=== PATIENT | male | born 1955 | race Caucasian/White ===

== ENCOUNTER 2017-10-11 05:38 | Inpatient (IN) | payer OTHER ==
[2017-10-06 08:12] VITALS: BMI 23.0
[~2017-10-11] VITALS: Ht 175.3 cm; Wt 71.8 kg
[2017-10-11] VITALS (11 sets, daily range): BP systolic 115–145; BP diastolic 68–91; PULSE 76–98; TEMP 36.2–36.5; O2SAT 92–99; Ht 175.3 cm; Wt 71.8 kg
[2017-10-11] MEDS ORDERED: LACTATED RINGER'S 1000ML 1,000 ML IV SCH (06:00)
[2017-10-11] MEDS ORDERED: ROCURONIUM BROMIDE 10 MG/ML 5 ML VIAL IV ONE ×2 (06:25→09:02)
[2017-10-11] MEDS ORDERED: FENTANYL CITRATE INJ 50 MCG/1 ML 2 ML VIAL ONE ×3 (06:25→10:04)
[2017-10-11] MEDS ORDERED: LIDOCAINE HCL 2% 2 ML VIAL (20MG/ML) ONE (06:25)
[2017-10-11] MEDS ORDERED: MIDAZOLAM HCL 1 MG/ML 2ML VIAL ONE (06:25)
[2017-10-11] MEDS ORDERED: DEXAMETHASONE SOD INJ 4 MG/ML VIAL ONE (06:25)
[2017-10-11] MEDS ORDERED: ONDANSETRON INJ 2 MG/ML 2 ML VIAL ONE (06:25)
[2017-10-11] MEDS ORDERED: PROPOFOL IV EMULSION 10 MG/ML 20 ML VIAL IV ONE (06:25)
--- NOTE | 2017-10-11 06:56 | History & Physical Bridge Note ---
H&P Re-Evaluation Bridge Note: I have examined the patient, reviewed the History & Physical and in the interval since the performance of the History & Physical I have noted the following changes of clinical significance: No changes noted
[2017-10-11] MEDS ORDERED: BUPIVACAINE LIPOSOME 1/3% 266 MG/20 ML VIAL INFIL ONE (07:02)
[2017-10-11] MEDS ORDERED: SODIUM CHLORIDE 0.9% PF 50 ML VIAL ONE (07:02)
[2017-10-11] MEDS ORDERED: CEFAZOLIN SOD 1 GM VIAL ONE (07:27)
[2017-10-11] MEDS ORDERED: ALBUMIN HUMAN 5% 12.5 GM/250 ML VIAL IV ONE (07:43)
[2017-10-11] MEDS ORDERED: PHENYLEPHRINE 100MCG/ML 5ML SYR ONE (08:17)
[2017-10-11] MEDS ORDERED: SURGICEL ABSORB HEMOSTAT 2IN X 14IN TOP ONE (08:57)
[2017-10-11] MEDS ORDERED: FENTANYL CITRATE INJ 50 MCG/1 ML 2 ML VIAL IV PRN (09:15)
[2017-10-11] MEDS ORDERED: HYDROmorphone INJ 1 MG/ML SYR IV PRN (09:15)
[2017-10-11] MEDS ORDERED: EpHEDrine SULFATE INJ 50 MG/ML AMP IV PRN (09:15)
[2017-10-11] MEDS ORDERED: ATROPINE SULFATE 0.1 MG/ML 5ML SYR IV PRN (09:15)
[2017-10-11] MEDS ORDERED: ONDANSETRON INJ 2 MG/ML 2 ML VIAL IV PRN ×2 (09:15→09:45)
[2017-10-11] MEDS ORDERED: NEOSTIGMINE METHYLSULFATE 5 MG/5 ML SYR ONE (09:16)
[2017-10-11] MEDS ORDERED: GLYCOPYRROLATE INJ 0.2 MG/ML VIAL ONE (09:16)
--- NOTE | 2017-10-11 09:32 | [facility] Post Operative Brief Note ---
Immediate Operative Summary Operative Date Oct 11, 2017. Pre-Operative Diagnosis Right upper lobe nodule Post-Operative Diagnosis Probable metastatic colon adenocarcinoma Procedure(s) Performed Robotic Assisted Thoracoscopy with Right Upper Lobe Wedge Resection, Right Upper Lobectomy with Mediastinal Lymphadenectomy Surgeon Dr Brooks Generating Plant Superintendent Surgeon(s) Jaime Espinosa PA-C Estimated Blood Loss 10ml Findings Apparent metastatic colon carcinoma. Specimens Frozen section #1 Right upper lobe wedge need diagnosis and margins taken to lab at [address] Anthony pathologist notified Dr Brooks of results A. Level 7 lymph node x2 B. R4 lymph node C. R2 lymph node D. R10 lymph node Complication(s) None Disposition Recovery Room / PACU
[2017-10-11] MEDS ORDERED: CEFAZOLIN IV 2,000 MG in DEXTROSE 5% 50ML 100 ML IV SCH (09:45)
[2017-10-11] MEDS ORDERED: MoRPHine SULFATE 2 MG/ML CARP IV PRN (09:45)
[2017-10-11] MEDS ORDERED: HYDROmorphone INJ 1 MG/ML SYR ONE (10:04)
--- NOTE | 2017-10-11 10:04 | OPERATIVE REPORT ---
DATE OF OPERATION: 10/11/2017 PREOPERATIVE DIAGNOSIS: Enlarging mass, right upper lobe. POSTOPERATIVE DIAGNOSIS: Adenocarcinoma, right upper lobe (apparent metastatic colon carcinoma). PROCEDURE: 1. Robot-assisted thoracoscopic wedge resection of right upper lobe mass. 2. Mediastinal lymph node dissection. SURGEON: Zeferino Brooks MD. ELECTRONIC LAB TECHNICIAN: ELLEN Perera, (Mr. Espinosa was present for the entire case and was at the bedside while I was at the console and closed the incisions at the conclusion of the case). DESCRIPTION OF PROCEDURE: Mr. Guallpa arrived at [facility] on the morning of 10/11/2017. After induction of general anesthesia and insertion of a dual-lumen endotracheal tube and proper monitoring lines, he was placed in left lateral decubitus position, his right chest prepped and draped in usual sterile fashion. After appropriate timeout had been called and prophylactic antibiotics given, an incision was made about the 8th interspace anteriorly. Carbon dioxide was insufflated through 5 mm port and then a 5 mm scope was placed. We see there were no adhesions and I placed total of 5 more ports. There was a 5 mm port placed posteriorly in the eighth interspace. An 8 mm port was placed 10 cm anterior to this port. A camera port which was 12 mm was placed about 10 cm more medial and then the 5 mm port was exchanged out for an 8 mm robotic port. A 12 mm port was then placed between the camera port and the more posterior port. Upon entering and insufflating CO2, we could see there were no adhesions. Upon evaluating the right upper lobe the indentation of the mass could be seen imbricating the pleura. This was grasped, an Endo-CLARA stapler was used to fire this several times to remove a generous wedge. This was delivered off the field with an Endobag. While waiting for the frozen section, I dissected out the level 7 lymph nodes. I then went more anteriorly and dissected out a level 10 node almost in its entirety. I then dissected the level 2 and level 4 node above the azygos vein. We had very little bleeding with this. After completing this dissection, the frozen section did come back. This was a necrotic tumor but also was an adenocarcinoma and it was difficult to tell without immunohistochemical markers but this appeared to be metastatic colon CA. We elected to stop here as he had fairly poor lung function. I did mix 266 mg of Exparel and performed an intrathoracic intercostal nerve block from the second to 11th rib using the Exparel mixed with a total of 60 mL of solution. This was injected with about 5 mL into each interspace. A 24-Mozambican chest tube was placed in the anterior most thoracostomy port site and directed towards the apex, sutured in place with heavy silk suture. Then 0 Vicryl was used to close the muscle layers of the 8 mm ports and the 12 mm port. Then 4-0 Monocryl was used in running subcuticular fashion to approximate the wound edges. He tolerated it well and only had very little in the way of an air leak at the conclusion of the case. I attest to the content of the Intraoperative Record and any orders documented therein. Any exception s are noted below.
[2017-10-11] MEDS ORDERED: ALBUTEROL HFA INHALER 8.5 GM INH ONE (10:07)
--- NOTE | 2017-10-11 10:22 | DIAGNOSTIC IMAGING REPORT ---
CHEST ONE VIEW PORTABLE CLINICAL HISTORY: right wedge resection COMPARISON STUDY: 08/02/2017 FINDINGS: Postsurgical changes are present on the right. There is a right-sided chest tube. There is subcutaneous emphysema on the right. There is no pneumothorax.[ There is no focal pulmonary consolidation. IMPRESSION: Postsurgical changes status post right-sided wedge resection with subcutaneous emphysema and right-sided chest tube. No evidence of pneumothorax Electronically signed by: Sarbjit Wu M.D. 10/11/2017 10:21 AM Dictated Date/Time: 10/11/2017 10:20 AM
--- NOTE | 2017-10-11 10:27 | Anesthesiology Progress Note ---
Anesthesia Post Op Note Date & Time Oct 11, 2017 at 10:26 Vital Signs Pain Intensity: 7 Vital Signs Past 12 Hours Date Time Temp Pulse Resp B/P (MAP) Pulse Ox O2 Delivery O2 Flow Rate FiO2 10/11/17 10:02 91 20 99 Mask 10.0 10/11/17 09:58 36.0 95 18 136/77 98 Oxymask 12 10/11/17 06:59 77 16 96 Room Air 10/11/17 06:02 36.5 88 20 126/91 98 Room Air Notes Mental Status: alert / awake / arousable, participated in evaluation Pt Amnestic to Procedure: Yes Nausea / Vomiting: adequately controlled Pain: adequately controlled Airway Patency, RR, SpO2: stable & adequate BP & HR: stable & adequate Hydration State: stable & adequate Anesthetic Complications: no major complications apparent
[2017-10-11] MEDS ORDERED: MoRPHine SULFATE 2 MG/ML CARP ONE (12:18)
[2017-10-11] MEDS: D5W AND 1/2NSS 1,000 ML IV SCH ×2 (12:19→21:35)
[2017-10-11] MEDS: OXYCODONE HCL IR 5 MG TAB (IMMEDIATE RELEASE) PO PRN ×2 (13:08→19:29)
[2017-10-11] MEDS: METOCLOPRAMIDE HCL INJ 5 MG/ML 2 ML VIAL IV. SCH ×2 (13:36→21:34)
[2017-10-11] MEDS: KETOROLAC TROMETHAMINE 15 MG/ML VIAL IV. SCH ×2 (13:37→21:34)
[2017-10-11] MEDS: ACETAMINOPHEN IV 1,000 MG in EMPTY BAG 0 ML IV SCH ×2 (13:37→21:34)
[2017-10-11] MEDS: CEFAZOLIN IV 2,000 MG in SYRINGE 0 ML IV SCH (19:06)
[2017-10-11] MEDS: DOCUSATE SODIUM 100 MG CAP PO SCH (19:30)
[2017-10-12] MEDS: CEFAZOLIN IV 2,000 MG in SYRINGE 0 ML IV SCH (00:38)
[2017-10-12 01:09] VITALS: BP 128/78; PULSE 69; TEMP 36.5; O2SAT 97
[2017-10-12] MEDS: ALBUTEROL HFA 8 GM INHALER INH PRN ×2 (02:35→10:44)
[2017-10-12 03:00] VITALS: BP 135/86; PULSE 66; TEMP 36.5; O2SAT 97
[2017-10-12] MEDS ORDERED: VNTHFA/IN INH (04:44)
[2017-10-12] MEDS ORDERED: COUGH DROP (SUGAR FREE) LOZ 24 LOZ/1 BOX ONE (05:33)
[2017-10-12] MEDS: ACETAMINOPHEN IV 1,000 MG in EMPTY BAG 0 ML IV SCH (05:35)
[2017-10-12] MEDS: KETOROLAC TROMETHAMINE 15 MG/ML VIAL IV. SCH ×2 (05:35→13:36)
[2017-10-12] MEDS: METOCLOPRAMIDE HCL INJ 5 MG/ML 2 ML VIAL IV. SCH (05:35)
[2017-10-12] MEDS ORDERED: COUGH DROP (SUGAR FREE) LOZ 24 LOZ/1 BOX PO PRN (06:00)
[2017-10-12 07:00] VITALS: BP 151/80; PULSE 68; TEMP 36.4; O2SAT 97
--- NOTE | 2017-10-12 07:13 | DIAGNOSTIC IMAGING REPORT ---
CHEST ONE VIEW PORTABLE CLINICAL HISTORY: right wedge resection postoperative evaluation COMPARISON STUDY: 10/11/2017 FINDINGS: Similar examination. Right-sided chest tube has been pulled back somewhat. Subcutaneous emphysema persists and is perhaps slightly diminished. No significant postprocedural pneumothorax. Left lung remains clear. IMPRESSION: Stable to slightly improved postoperative changes . No significant right-sided pneumothorax with a slight improvement of the subcutaneous emphysematous change. The above report was generated using voice recognition software. It may contain grammatical, syntax or spelling errors. Electronically signed by: Sebas Riley M.D. 10/12/2017 7:12 AM Dictated Date/Time: 10/12/2017 7:11 AM
[2017-10-12] MEDS: D5W AND 1/2NSS 1,000 ML IV SCH (07:47)
[2017-10-12] MEDS ORDERED: ULT/50 PO (08:09)
[2017-10-12] MEDS ORDERED: CLC100 PO (08:09)
--- NOTE | 2017-10-12 08:11 | Discharge Instructions ---
Discharge Instructions Date of Service Oct 12, 2017. Admission Reason for Admission: Right Lung Nodule Discharge Discharge Diagnosis / Problem: Right Lung Nodule Discharge Goals Goal(s): Learn about illness Activity Recommendations Activity Limitations: as noted below Lifting Limitations: none 1. You may remove dressings in 3 days and shower thereafter. No tub baths. 2. Do not drive until cleared to do so by Dr. Brooks. Do not drive if taking ultram. . Instructions / Follow-Up Instructions / Follow-Up 1. Office appointment with Dr. Brooks in 1 week. Office will call with date and time of appointment. Go to hospital 1 hour before appointment to get a chest x-ray. Current Hospital Diet Patient's current hospital diet: Regular Diet Discharge Diet Recommended Diet: Regular Diet Procedures Procedures Performed: Robotic Assisted Thoracoscopy with Right Upper Lobe Wedge Resection with Mediastinal Lymphadenectomy Pending Studies Studies pending at discharge: no Medical Emergencies . Who to Call and When: Medical Emergencies: If at any time you feel your situation is an emergency, please call 911 immediately. . Non-Emergent Contact Non-Emergency issues call your: Surgeon Call Non-Emergent contact if: you have a fever, your pain is not controlled, wound has increased drainage . "Provider Documentation" section prepared by Bharathi Espinosa. . VTE Core Measure Inpt VTE Proph given/why not?: Enoxaparin (Lovenox)SQ
--- NOTE | 2017-10-12 08:27 | DIAGNOSTIC IMAGING REPORT ---
CHEST ONE VIEW PORTABLE HISTORY: 62 years-old Male tube removal status post chest tube removal COMPARISON: Chest radiograph 10/12/2017, CTA of the chest 08/02/2017, PET CT 09/13/2017 TECHNIQUE: Portable AP view of the chest. FINDINGS: Cardiac silhouette is within normal limits. Prominence of the right mediastinal margin is again seen compatible with ectasia of the ascending thoracic aorta. Postoperative changes of the right midlung are noted without pneumothorax, pleural effusion, focal airspace consolidation or overt pulmonary edema. Emphysema. Status post removal of right-sided chest tube with mild persistent right chest wall subcutaneous emphysema. The bones of the chest appear grossly intact. IMPRESSION: 1. Status post right-sided chest tube removal without evidence of pneumothorax. Mild subcutaneous emphysema of the right chest wall redemonstrated. 2. Postoperative changes of the right lung. 3. Emphysema. The above report was generated using voice recognition software. It may contain grammatical, syntax or spelling errors. Electronically signed by: Jasbir Otrega M.D. 10/12/2017 8:26 AM Dictated Date/Time: 10/12/2017 8:22 AM
--- NOTE | 2017-10-12 08:31 | SURGERY PROGRESS NOTE ---
DATE: 10/12/2017 DATE: 10/12/2017 Mr. Guallpa is one day status post a robotic-assisted thoracoscopic wedge resection of an adenocarcinoma of the right upper lobe. It appears this may well be a metastatic disease. We had clean margins. He has no air leak. He has drained very little from his chest tube. His x-ray looks quite good. He looks good except he is on some oxygen. We are going to stop his IV fluids and remove his chest tube and have him ambulate in the hallway in an attempt to get him off the oxygen. If he looks better I will discharge him later today.
[2017-10-12] MEDS: DOCUSATE SODIUM 100 MG CAP PO SCH (08:33)
[2017-10-12] MEDS ORDERED: ENOXAPARIN 40 MG/0.4 ML SYR SQ SCH (09:00)
[2017-10-12 10:43] VITALS: BP 154/81; PULSE 76; TEMP 36.6; O2SAT 94
--- NOTE | 2017-10-12 10:52 | Anesthesiology Progress Note ---
Anesthesia Post Op Note Date & Time Oct 12, 2017 at 10:51 Vital Signs Vital Signs Past 12 Hours Date Time Temp Pulse Resp B/P (MAP) Pulse Ox O2 Delivery O2 Flow Rate FiO2 10/12/17 10:43 36.6 76 18 154/81 (105) 94 Room Air 10/12/17 07:25 Nasal Cannula 2.0 10/12/17 07:00 36.4 68 18 151/80 (103) 97 Nasal Cannula 2.0 10/12/17 03:00 36.5 66 16 135/86 (102) 97 Nasal Cannula 2.0 10/12/17 01:09 36.5 69 16 128/78 (95) 97 Nasal Cannula 2.0 10/11/17 23:00 36.5 76 16 118/72 (87) 97 Nasal Cannula 2.0 Notes Mental Status: alert / awake / arousable, participated in evaluation Pt Amnestic to Procedure: Yes Nausea / Vomiting: adequately controlled Pain: adequately controlled Airway Patency, RR, SpO2: stable & adequate BP & HR: stable & adequate Hydration State: stable & adequate Anesthetic Complications: no major complications apparent
[2017-10-12] MEDS ORDERED: ACETAMINOPHEN 325 MG TAB PO SCH (12:00)
[2017-10-12 13:53] VITALS: BP 154/81; PULSE 76; TEMP 36.6; O2SAT 94
== END 2017-10-12 14:10 | disposition home or self-care (01) | DRG 164 ==
LOC: C.ACU 05:38 → C.MSW 06:50 → ENRESERV 10:25
PROVIDERS: ADMIT Surgery; ATTEND Surgery
PROC: 07B74ZX Excision of Thorax Lymphatic, Percutaneous Endoscopic Approach, Diagnostic (ICD-10-PCS; principal; 2017-10-11 07:30)
PROC: 0BBC4ZZ Excision of Right Upper Lung Lobe, Percutaneous Endoscopic Approach (ICD-10-PCS; principal; 2017-10-11 07:30)
DX: C78.01 Secondary malignant neoplasm of right lung (principal); C18.9 Malignant neoplasm of colon, unspecified; Z87.891 Personal history of nicotine dependence

== ENCOUNTER 2017-10-12 17:38 | Inpatient (IN) | payer OTHER ==
[~2017-10-12] VITALS: Ht 175.3 cm; Wt 72.0 kg
[~2017-10-12 17:38] MED LIST: CLC100 PO; ULT/50 PO; VNTHFA/IN INH
--- NOTE | 2017-10-12 18:49 | DIAGNOSTIC IMAGING REPORT ---
TWO VIEW CHEST CLINICAL HISTORY: Dyspnea. FINDINGS: PA and lateral chest radiographs are compared to study performed earlier the same day 10/12/2017. Correlation is made with chest CT dated 08/02/2017. The PA view is degraded by patient rotation. The cardiomediastinal silhouette is unremarkable. There is atherosclerotic calcification of the thoracic aorta. Advanced emphysema and chronic interstitial thickening are similar to previous. No airspace consolidation or large pleural effusion is identified. There is a small right apical pneumothorax. No left-sided pneumothorax is identified. Suture material projects over the right suprahilar region. The skeletal structures appear osteopenic. The bony thorax appears intact. There is increasing subcutaneous emphysema along the right chest wall. IMPRESSION: 1. There is a small right apical pneumothorax. 2. There is increasing subcutaneous emphysema along the right chest wall. 3. Emphysema. No airspace consolidation or pleural effusion is identified. Electronically signed by: James Belle M.D. 10/12/2017 6:48 PM Dictated Date/Time: 10/12/2017 6:46 PM
[2017-10-12] MEDS ORDERED: ALBUTEROL HFA 8 GM INHALER INH PRN (19:30)
--- NOTE | 2017-10-12 19:57 | EMERGENCY ROOM VISIT NOTE ---
History Report prepared by Khloe: Marie Chamorro Under the Supervision of: Dr. Selwyn Jones D.O. First contact with patient: 17:49 Chief Complaint: OTHER COMPLAINT Stated Complaint: AIR LEAK IN NECK FROM THORACOTOMY History of Present Illness The patient is a 62 year old male who presents to the Emergency Room with complaints of a worsening air leak in his neck from a thoracotomy starting a few hours ago. The patient states that he had a wedge resection of his right upper lobe. He states that he was discharged from the hospital today. He states that as he started moving around at home, he noticed it started to puff up. The patient complains of developing a cough, a nasally voice, and his ears feeling plugged. He notes that he spoke to Dr. Brooks before coming in. He also notes that the nurse mentioned a small amount or air along where his chest tube was, but he feels like it is gone. Per past medical records, the patient had a thoracotomy wedge resection of an adenocarcinoma in the right upper lobe done by Dr. Brooks. Dr. Brooks reported no air leak. Source of History: patient, other (medical records) Onset: a few hours ago Position: neck Quality: other ("puffed up") Timing: worsening Associated Symptoms: + cough Note: The patient complains of a nasally voice and his ears feeling plugged. Review of Systems See HPI for pertinent positives & negatives. A total of 10 systems reviewed and were otherwise negative. Past Medical & Surgical Medical Problems: (1) Colon cancer (2) COPD (chronic obstructive pulmonary disease) (3) Hip dislocation, right (4) Lung metastasis (5) Pneumothorax on right Surgical Problems: (1) History of right hip replacement (2) History of thoracotomy (3) Status post partial colectomy Family History Patient reports no known family medical history. Social History Smoking Status: Former Smoker Alcohol Use: occasionally Drug Use: none Marital Status: Housing Status: lives with family Occupation Status: disabled Current/Historical Medications Scheduled Docusate Sodium (Docusate Sodium), 100 MG PO BID Scheduled PRN Albuterol Hfa (Ventolin Hfa), 2 PUFFS INH Q6H PRN for SOB/Wheezing Tramadol Hcl (Ultram), 50 MG PO Q4H PRN for Pain Allergies Coded Allergies: No Known Allergies (Verified , 10/06/17) Physical Exam Vital Signs Date Time Temp Pulse Resp B/P (MAP) Pulse Ox O2 Delivery O2 Flow Rate FiO2 10/12/17 19:27 92 18 154/99 94 Room Air 10/12/17 17:45 36.4 98 22 189/102 90 Physical Exam CONSTITUTIONAL/VITAL SIGNS: Reviewed / noted above. GENERAL: Non-toxic in appearance. INTEGUMENTARY: Warm, dry, and [place]. HEAD: Normocephalic. EYES: without scleral icterus or trauma. ENT/OROPHARYNX: clear and moist. LYMPHADENOPATHY/NECK: Is supple without lymphadenopathy or meningismus. Palpable subcutaneous air tracking up the right side of the neck. RESPIRATORY: Lungs clear and equal. CARDIOVASCULAR: Regular rate and rhythm. CHEST: Palpable subcutaneous air in the upper chest on the right. GI/ABDOMEN: Soft and nontender. No organomegaly or pulsatile mass. No rebound or guarding. Normal bowel sounds. EXTREMITIES: Warm and well perfused. BACK: No CVA tenderness. NEUROLOGICAL: Intact without focal deficits. PSYCHIATRIC: normal affect. MUSCULOSKELETAL: Normally developed with good muscle tone. Medical Decision & Procedures ER Provider Diagnostic Interpretation: Radiology results as stated below per my review and radiologist interpretation: TWO VIEW CHEST CLINICAL HISTORY: Dyspnea. FINDINGS: PA and lateral chest radiographs are compared to study performed earlier the same day 10/12/2017. Correlation is made with chest CT dated 08/02/2017. The PA view is degraded by patient rotation. The cardiomediastinal silhouette is unremarkable. There is atherosclerotic calcification of the thoracic aorta. Advanced emphysema and chronic interstitial thickening are similar to previous. No airspace consolidation or large pleural effusion is identified. There is a small right apical pneumothorax. No left-sided pneumothorax is identified. Suture material projects over the right suprahilar region. The skeletal structures appear osteopenic. The bony thorax appears intact. There is increasing subcutaneous emphysema along the right chest wall. IMPRESSION: 1. There is a small right apical pneumothorax. 2. There is increasing subcutaneous emphysema along the right chest wall. 3. Emphysema. No airspace consolidation or pleural effusion is identified. Electronically signed by: James Belle M.D. 10/12/2017 6:48 PM Dictated Date/Time: 10/12/2017 6:46 PM ED Course 1752: Previous medical records were reviewed. The patient was evaluated in room B3B. A complete history and physical examination was performed. 1921: Discussed the patient's case with Dr. Brooks. The patient will be evaluated for further treatment and disposition. Medical Decision the differential was considered includes acute myocardial infarction, acute coronary syndrome, myocarditis, pericarditis, pericardial effusions /tamponade, esophageal perforation, pulmonary embolism, pneumonia, pneumothorax, cardiomyopathy, congestive heart, anemia , COPD/asthma exacerbation. This is a 62-year-old male who presents to the ED with a chief complaint of subcutaneous air in his neck and right upper chest as well as some hoarseness in his voice. He also reports some muffled hearing on the right. The patient was discharged a few hours ago from the hospital after a robot-assisted wedge resection of the right upper lung for adenocarcinoma. The patient is breathing comfortably and in no distress. His exam reveals palpable crepitus/ subcutaneous air in the right upper chest and right neck area. Initial blood pressure is hypertensive. Chest x-ray reveals a small apical pneumothorax with increase subcutaneous emphysema. The patient was seen by the pulmonary surgeon , Dr. Brooks. He is going to admit the patient on oxygen.. Medication Reconcilliation Current Medication List: was personally reviewed by me Blood Pressure Screening Patient's blood pressure: Elevated blood pressure Blood pressure disposition: Referred to PCP Consults Time Called: 1910 Consulting Physician: Dr. Brooks - Thoracic Surgeon Returned Call: 1920 Discussed the patient's case with Dr. Brooks. The patient will be evaluated for further treatment and disposition. Impression Primary Impression: Pneumothorax Additional Impression: Status post thoracotomy Scribe Attestation The scribe's documentation has been prepared under my direction and personally reviewed by me in its entirety. I confirm that the note above accurately reflects all work, treatment, procedures, and medical decision making performed by me. Departure Information Dispostion Being Evaluated By Surgeon Referrals No Doctor, Assigned (PCP) Patient Instructions My [facility] Problem Qualifiers
--- NOTE | 2017-10-12 20:11 | HISTORY & PHYSICAL EXAMINATION ---
DATE OF ADMISSION: 10/12/2017 Mr. Guallpa was seen in the Emergency Room. He was just discharged several hours ago after we did a robot-assisted thoracoscopic wedge resection of a metastatic colon nodule in his right upper lobe. We did this yesterday. He did very well and did not have an air leak this morning. We removed his chest tube in the morning. His x-ray looked quite good. I saw him a few hours later and we discharged him. He went home and stated that after he got home, he got "loosened up" and began coughing quite a bit. He stated he was able to "open my lungs up." He noted subcutaneous emphysema in his right supraclavicular fossa in his neck. This concerned him of course and he called me, I told him to come back. He does have a small pneumothorax. Otherwise, I think his x-ray looks pretty good. At this point, I am not going to put a chest tube in but I am going to admit him and put him on oxygen. We will repeat a chest x-ray in the morning. My hope is this will simply resolve as he and his sister both state that his subcutaneous emphysema has actually gotten better than it was a few hours ago. We will see how he looks overnight.
[2017-10-12] MEDS: OXYCODONE/ACETAMINOPHEN 5-325 TAB PO PRN (20:50)
[2017-10-12] MEDS: DOCUSATE SODIUM 100 MG CAP PO SCH (21:00)
[2017-10-12 22:01] VITALS: BP 132/86; PULSE 88; TEMP 36.7; O2SAT 96; Ht 175.3 cm; Wt 72.0 kg
[2017-10-12 22:54] VITALS: BP 140/73; PULSE 89; TEMP 36.9; O2SAT 97
[2017-10-13] MEDS: OXYCODONE/ACETAMINOPHEN 5-325 TAB PO PRN ×5 (01:41→21:07)
[2017-10-13 06:52] VITALS: BP 141/85; PULSE 86; O2SAT 94
--- NOTE | 2017-10-13 07:39 | DIAGNOSTIC IMAGING REPORT ---
CHEST ONE VIEW PORTABLE CLINICAL HISTORY: pneumothorax COMPARISON STUDY: 10/12/2017 FINDINGS: The cardiac and mediastinal contours remain stable. There is evidence for underlying pulmonary emphysema. There is right-sided subcutaneous emphysema. There is a right apical pneumothorax the pleural separation of 12 mm. There is no focal pelvic consolidation[ IMPRESSION: 1. Persistent small right apical pneumothorax the pleural separation of 12 mm 2. Emphysema 3. Stable subcutaneous emphysema on the right Electronically signed by: Sarbjit Wu M.D. 10/13/2017 7:37 AM Dictated Date/Time: 10/13/2017 7:36 AM
--- NOTE | 2017-10-13 08:22 | SURGERY PROGRESS NOTE ---
DATE: 10/13/2017 Mr. Guallpa was admitted last night after being discharged yesterday, 1 day status post robot-assisted thoracoscopic wedge resection of metastases from his colon CA. He has a very tiny pneumothorax and I think his subcutaneous emphysema is better than last night. He is still a bit anxious about this. On the x-ray, I think subcutaneous emphysema is a bit better. I would not put a chest tube in him now. I think he can probably be discharged tomorrow. I am a bit afraid to send him home today and he is anxious about it. We will continue to ambulate him. He does sound a bit better to me. Dr. Anthony will be covering and I think he can probably be discharged tomorrow.
[2017-10-13] MEDS: DOCUSATE SODIUM 100 MG CAP PO SCH ×2 (09:44→21:06)
[2017-10-13] MEDS: ENOXAPARIN 40 MG/0.4 ML SYR SQ SCH (11:19)
[2017-10-13 14:54] VITALS: BP 139/76; PULSE 85; O2SAT 93
[2017-10-13] MEDS: KETOROLAC TROMETHAMINE 15 MG/ML VIAL IV PRN (19:49)
[2017-10-13 21:10] VITALS: O2SAT 97
[2017-10-13 23:07] VITALS: BP 138/81; PULSE 87; TEMP 36.7; O2SAT 95
--- NOTE | 2017-10-14 07:23 | DIAGNOSTIC IMAGING REPORT ---
SINGLE VIEW CHEST CLINICAL HISTORY: Dyspnea. FINDINGS: An AP, portable, upright chest radiograph is compared to study dated 10/13/2017. Correlation is made with chest CT dated 08/02/2017. The examination is degraded by portable technique and patient rotation. The cardiomediastinal silhouette is unremarkable. There is atherosclerotic calcification of the thoracic aorta. Advanced emphysema and chronic interstitial thickening are similar to previous. No airspace consolidation or large pleural effusion is identified. A trace right apical pneumothorax persists. No left-sided pneumothorax is identified. Suture material projects over the right suprahilar region. The skeletal structures appear osteopenic. The bony thorax appears intact. Subcutaneous emphysema is again seen along the right chest wall and in the right lower neck. IMPRESSION: 1. A trace right apical pneumothorax persists. 2. Subcutaneous emphysema. 3. Emphysema. No airspace consolidation or pleural effusion is identified. Electronically signed by: James Belle M.D. 10/14/2017 7:21 AM Dictated Date/Time: 10/14/2017 7:20 AM
[2017-10-14] MEDS ORDERED: MAGNESIUM CITRATE 296 ML/BTL PO PRN (07:30)
[2017-10-14 07:32] VITALS: BP 149/95; PULSE 89; TEMP 36.4; O2SAT 95
[2017-10-14] MEDS: OXYCODONE/ACETAMINOPHEN 5-325 TAB PO PRN ×2 (07:55→19:40)
--- NOTE | 2017-10-14 08:04 | SURGERY PROGRESS NOTE ---
DATE: 10/14/[address] Brooks. Derian sitting at the side of the bed in no acute distress. He states he feels about the same as yesterday. He has some discomfort in his neck area which is really much unchanged. Clinically, you can appreciate subcutaneous emphysema in the clavicular area in the right minimally in the chest wall. The dressings I took off since it were bothering the patient and all the incisions are healing fine. There is no drainage or open areas. His last vitals showed a temperature of 36.7, pulse 87, respirations 16, blood pressure 138/81, O2 sats 95 on room air. I repeated a chest x-ray today. The subcutaneous emphysema appears much less than yesterday. I do not see a side of pneumothorax on the right. The patient's main complaint is he has not moved his bowels and would like to stay here another day. I could not follow from if he has little discomfort yet; therefore, hopefully by tomorrow he will be able to be discharged.
[2017-10-14] MEDS: DOCUSATE SODIUM 100 MG CAP PO SCH ×2 (09:42→20:25)
[2017-10-14] MEDS: ENOXAPARIN 40 MG/0.4 ML SYR SQ SCH (09:43)
[2017-10-14] MEDS: KETOROLAC TROMETHAMINE 15 MG/ML VIAL IV PRN ×2 (13:40→22:30)
[2017-10-14 15:13] VITALS: BP 116/71; PULSE 80; TEMP 36.6; O2SAT 97
[2017-10-14 23:03] VITALS: BP 142/87; PULSE 80; TEMP 36.4; O2SAT 91
--- NOTE | 2017-10-15 07:20 | DIAGNOSTIC IMAGING REPORT ---
CHEST ONE VIEW PORTABLE HISTORY: 62 years-old Male follow up pneumo follow-up study in a patient with small right pneumothorax. COMPARISON: Chest radiograph 10/14/2016 TECHNIQUE: Portable AP view of the chest FINDINGS: The cardiomediastinal and hilar silhouettes are within normal limits. Mild tortuosity and ectasia of the ascending thoracic aorta with atherosclerosis. Postoperative changes of the right upper lung. Biapical pleural-parenchymal scarring. Subsegmental linear opacities of the lateral right lung base are unchanged suggesting atelectasis or scarring. Persistent mildly decreased subcutaneous emphysema along the right chest wall, notably within the supraclavicular tissues. Emphysematous changes redemonstrated. Previously noted trace right apical pneumothorax is not definitively seen on today's study. IMPRESSION: 1. Postoperative changes of the right upper lung. Previously noted trace right apical pneumothorax not identified on today's study. 2. Persistent mildly decreased subcutaneous emphysema along the right chest wall. The above report was generated using voice recognition software. It may contain grammatical, syntax or spelling errors. Electronically signed by: Jasbir Ortega M.D. 10/15/2017 7:19 AM Dictated Date/Time: 10/15/2017 7:15 AM
[2017-10-15 08:01] VITALS: BP 148/76; PULSE 95; TEMP 36.4; O2SAT 95
[2017-10-15] MEDS: OXYCODONE/ACETAMINOPHEN 5-325 TAB PO PRN (08:19)
[2017-10-15] MEDS: DOCUSATE SODIUM 100 MG CAP PO SCH (09:00)
--- NOTE | 2017-10-15 09:03 | Discharge Instructions ---
Discharge Instructions Date of Service Oct 15, 2017. Admission Reason for Admission: Pneumothorax On Right Discharge Discharge Diagnosis / Problem: right post op pneumothorax Discharge Goals Goal(s): Decrease discomfort, Improve function, Increase independence Activity Recommendations Activity Limitations: as noted below (no lifting greater than 10 lbs) Lifting Limitations: no more than 10 pounds Exercise/Sports Limitations: until after follow-up appointment May Resume Sexual Activity: after follow-up appointment Shower/Bathe: keep incision dry Driving or Machine Use: bradley brar in follow up . Instructions / Follow-Up Instructions / Follow-Up call [phone] for any problems keep previous set up nona for this week Current Hospital Diet Patient's current hospital diet: Regular Diet Discharge Diet Recommended Diet: Regular Diet Pending Studies Studies pending at discharge: no Medical Emergencies . Who to Call and When: Medical Emergencies: If at any time you feel your situation is an emergency, please call 911 immediately. . Non-Emergent Contact Non-Emergency issues call your: Primary Care Provider . "Provider Documentation" section prepared by Bertram Anthony. . VTE Core Measure Inpt VTE Proph given/why not?: SCD's
[2017-10-15] MEDS: ENOXAPARIN 40 MG/0.4 ML SYR SQ SCH (09:16)
[2017-10-15 09:24] VITALS: BP 148/76; PULSE 95; TEMP 36.4; O2SAT 95
--- NOTE | 2017-10-15 09:55 | SURGERY PROGRESS NOTE ---
DATE: 10/15/2017 SUBJECTIVE: Derian is doing much better this morning. He has less discomfort in his neck area. He is up and around, anxious to go home. His last vitals showed a temperature of 36.4, pulse 95, respirations 18, blood pressure 148/76, O2 sat is 95 on room air. Clinically, the subQ emphysema in the neck area has decreased as in the chest wall. Radiographically, there is no evidence of a pneumothorax this morning. The incisions in the chest wall are all healing well. He has moved his bowels with some magnesium citrate yesterday. At this point, we will discharge the patient and have him follow up with Dr. Brooks this coming week and he has some prescription for pain pills at home. [place]
--- NOTE | 2017-10-16 18:46 | DISCHARGE SUMMARY ---
DISCHARGE DIAGNOSES: Subcutaneous emphysema, postoperatively. HOSPITAL COURSE: Derian Guallpa is a 62-year-old male with history of colon cancer, has been treated postoperatively and had his colon resection several years ago who had a mass in his right upper lobe. On 10/11/2017, I took the patient to the operating room and did a robot-assisted wedge resection with a plan towards perhaps doing a lobectomy; however, this came back as an adenocarcinoma. We felt this was consistent with original primary, so after performing the metastasectomy, I inserted a chest tube and watched him on the floor. He had no air leak the next day. I removed his chest tube early in the morning and he was in the hospital for a few hours after that and then looked very good so he was discharged around lunchtime. I got a call from the patient several hours later that he started having "puffiness" along his right supraclavicular and neck area. He had also started coughing more at home as he felt that he needed to "clear my lungs." I think that this may have been a problem with the development of subcutaneous emphysema. I got an x-ray and the patient did indeed have a small pneumothorax and some subcutaneous emphysema. He was unnerved by this. I admitted him to the hospital. He had had no hypoxia. I did keep him on oxygen as he did have a small pneumothorax and the following morning, I really could not see the pneumothorax, but he still had emphysema. We watched him for another day and on 10/15/2016, he was discharged as his subcutaneous emphysema had improved, not only radiographically, but also clinically. He felt better. He sounded better, he is ambulating in the hallway and moving his bowels. His incisions were all clean. He was discharged home on 10/15/2016 and I will see him back in the office in a week to go over the final path and to check an x-ray.
== END 2017-10-15 10:28 | disposition home or self-care (01) | DRG 200 ==
LOC: C.EDB 17:39 → C.MSN 19:39 → ENRESERV 21:14
PROVIDERS: ADMIT Surgery; ATTEND Surgery
DX: J95.811 Postprocedural pneumothorax (principal); C78.01 Secondary malignant neoplasm of right lung; C18.9 Malignant neoplasm of colon, unspecified; Z87.891 Personal history of nicotine dependence; T81.82XA Emphysema (subcutaneous) resulting from a procedure, initial encounter; Y83.6 Removal of other organ (partial) (total) as the cause of abnormal reaction of the patient, or of later complication, without mention of misadventure at the time of the procedure

== ENCOUNTER → 2017-10-20 | Outpatient (CLI) | payer OTHER ==
--- NOTE | 2017-10-20 09:50 | DIAGNOSTIC IMAGING REPORT ---
CHEST 2 VIEWS ROUTINE CLINICAL HISTORY: Right lung nodule status post thoracoscopic wedge resection on October 11, 2017. COMPARISON STUDY: Chest radiograph October 15, 2017. FINDINGS: Postoperative findings within the right upper lobe are again noted. A few nodular opacities along the resection margin are noted. Findings are either unchanged or slightly increased since exam of October 15, 2017. There is trace subcutaneous gas within the right lower neck. This has decreased. There is no pneumothorax or pleural effusion. Mild lung hyperexpansion is noted. Cardiac size is normal. There is no evidence for pulmonary edema. IMPRESSION: 1. A few nodular opacities within the right upper lung which likely reflect postsurgical change. This can be assessed on subsequent exams to ensure resolution. 2. Near-complete resolution of soft tissue gas within the right lower neck since prior exam. No pneumothorax. Electronically signed by: Rodrigue Lemus M.D. 10/20/2017 9:48 AM Dictated Date/Time: 10/20/2017 9:44 AM
== END | disposition home or self-care (01) ==
LOC: C.RAD 09:07
PROVIDERS: ATTEND Surgery
DX: R91.1 Solitary pulmonary nodule (principal); R91.8 Other nonspecific abnormal finding of lung field

== ENCOUNTER → 2017-11-09 | Day surgery (SDC) | payer OTHER ==
[2017-11-01 09:17] VITALS: BMI 23.0
[~2017-11-09] VITALS: Ht 175.3 cm; Wt 71.4 kg
[~2017-11-09] MED LIST changes: -CLC100 PO; +IBUP-103 PO; +PROPOFOL IV EMULSION 10 MG/ML 20 ML VIAL IV ONE; +SODIUM CHLORIDE 0.9% 500ML 500 ML IV ONE; -ULT/50 PO
[2017-11-09 08:07] VITALS: Ht 175.3 cm; Wt 71.4 kg
--- NOTE | 2017-11-09 08:32 | Endo History and Physical ---
History & Physical Date of Service: Nov 09, 2017. Chief Complaint: HX COLON CANCER WITH RESECTION Referring Physician: DR. SNEED History of Present Illness 62 yo w hx of metastatic colon ca, s/p resection 2010. Presenting for colonoscopy Past Surgical History Hx Cardiac Surgery: No Hx Internal Defibrillator: No Hx Pacemaker: No Hx Abdominal Surgery: No Hx of Implantable Prosthesis: No Hx Post-Op Nausea and Vomiting: No Hx Cancer Surgery: Yes (COLON RESECTION, LLL BIOPSY WITH PNEUMO --> WEDGE RESECTION, RUL WEDGE RES) Hx Thoracic Surgery: No Hx Orthopedic: Yes (RT TREVOR) Hx Urinary Tract Surgery: Yes (STRANGULATED TESTICLE REPAIR) Family History None Social History Smoking Status: Former Smoker Hx Substance Use: No Hx Alcohol Use: No Allergies Coded Allergies: No Known Allergies (Verified , 11/01/17) Current Medications Reported Home Medications Medications Dose Route/Sig Max Daily Dose Days Date Category Advil (Ibuprofen) 200 Mg Tab 200-600 Mg PO Q4H PRN 11/01/17 Reported Ventolin Hfa (Albuterol) 200 Puffs/74935 Mcg Aers 2 Puffs INH Q6H PRN 08/02/17 Reported Vital Signs Weight (Kilograms): 71.36 Height (Feet): 5 Height (Inches): 9 Date Time Temp Pulse Resp B/P (MAP) Pulse Ox O2 Delivery O2 Flow Rate FiO2 11/09/17 08:20 36.5 88 20 139/89 (106) 96 Room Air Physical Exam General Appearance: WD/WN, no apparent distress Respiratory/Chest: Respiratory effort: no dyspnea Auscultation: breath sounds normal Cardiovascular: Apical Impulse: not displaced Heart Auscultation: RRR, normal S1, normal S2 Abdomen: Inspection & Palpation: soft, non-distended Assessment and Plan 62 yo presenting for colonoscopy for cancer surveillance
--- NOTE | 2017-11-09 09:10 | GI REPORT ---
Procedure Date: 11/09/2017 8:35 AM Procedure: Colonoscopy Indications: High risk colon cancer surveillance: Personal history of colon cancer Medicines: Monitored Anesthesia Care Complications: No immediate complications. Estimated blood loss: None. Estimated Blood Loss: Estimated blood loss: none. Procedure: Pre-Anesthesia Assessment: - Pre-Anesthesia Assessment: - Prior to the procedure, a History and Physical was performed, and patient medications, allergies and sensitivities were reviewed. The patient's tolerance of previous anesthesia was reviewed. Please see [facility] for complete details. - The risks and benefits of the procedure and the sedation options and risks were discussed with the patient. All questions were answered and informed consent was obtained. - Patient identification and proposed procedure were verified prior to the procedure by the physician and the nurse. The procedure was verified in the pre-procedure area in the procedure room. After obtaining informed consent, the endoscope was passed carefully and meticuously under direct vision and only advanced when the lumen was clearly identified, C02 insuflation was utilized throughout the entirity of the procedure. Throughout the procedure, the patient's blood pressure, pulse, and oxygen saturations were monitored continuously. After I obtained informed consent, the scope was passed under direct vision. Throughout the procedure, the patient's blood pressure, pulse, and oxygen saturations were monitored continuously. The scope was introduced through the anus and advanced to the cecum, identified by appendiceal orifice and ileocecal valve. The colonoscopy was performed without difficulty. The patient tolerated the procedure well. The quality of the bowel preparation was good. Findings: There was evidence of a prior end-to-side colo-colonic anastomosis in the sigmoid colon. This was patent and was characterized by healthy appearing mucosa. The terminal ileum appeared normal. Multiple small-mouthed diverticula were found in the sigmoid colon. Internal hemorrhoids were found during retroflexion. Internal hemorrhoids were found during retroflexion. The exam was otherwise without abnormality on direct and retroflexion views. Impression: - Patent end-to-side colo-colonic anastomosis, characterized by healthy appearing mucosa. - The examined portion of the ileum was normal. - Diverticulosis in the sigmoid colon. - Internal hemorrhoids. - Internal hemorrhoids. - The examination was otherwise normal on direct and retroflexion views. - No specimens collected. Recommendation: - Discharge patient to home (with escort). - Repeat colonoscopy in 3 years for surveillance. - Return to referring physician as previously scheduled. Jb Emery MD 11/09/2017 9:09:55 AM This report has been signed electronically. Note Initiated On: 11/09/2017 8:35 AM I attest to the content of the Intraoperative Record and orders documented therein, exceptions below
--- NOTE | 2017-11-09 09:13 | Discharge Instructions ---
Endoscopy Patient Instructions Date / Procedure(s) Performed Nov 09, 2017. Colonoscopy Allergy Information Coded Allergies: No Known Allergies (Verified , 11/01/17) Discharge Date / Findings Nov 09, 2017. Findings: There was evidence of a prior end-to-side colo-colonic anastomosis in the sigmoid colon. This was patent and was characterized by healthy appearing mucosa. The terminal ileum appeared normal. Multiple small-mouthed diverticula were found in the sigmoid colon. Internal hemorrhoids were found during retroflexion. Internal hemorrhoids were found during retroflexion. The exam was otherwise without abnormality on direct and retroflexion views. Impression: - Patent end-to-side colo-colonic anastomosis, characterized by healthy appearing mucosa. - The examined portion of the ileum was normal. - Diverticulosis in the sigmoid colon. - Internal hemorrhoids. - Internal hemorrhoids. - The examination was otherwise normal on direct and retroflexion views. - No specimens collected. Recommendation: - Discharge patient to home (with escort). - Repeat colonoscopy in 3 years for surveillance. - Return to referring physician as previously scheduled. Provider Instructions Activity Restrictions - No exercising or heavy lifting for 24 hours. - Do not drink alcohol the day of the procedure. - Do not drive a car or operate machinery until the day after the procedure. - Do not make any important decisions or sign important papers in 24 hours after the procedure. Following Day: - Return to full activity which may include returning to work/school. Diet Start your diet with liquids and light foods (jello, soup, juice, toast). Then eat your usual diet if not nauseated. Treatment For Common After Affects For mild abdominal pain, bloating, or excessive gas: - Rest - Eat lightly - Lie on right side Follow-Up Information Follow-up with DR. SNEED as scheduled Anesthesia Information What You Should Know You have had a procedure that required some medicine to reduce anxiety and discomfort. This treatment is called moderate sedation. After receiving the treatment, you may be sleepy, but you will be able to breathe on your own. The effects of the treatment may last for several hours. Follow these instructions along with Activity/Diet recommendations noted above: * Do NOT do anything where dizziness or clumsiness would be dangerous. * Rest quietly at home today, then you can be up and about tomorrow. * Have a responsible person stay with you the rest of today. * You may have had an I.V. today. If so, you may take the dressing off later today. Recommendations Call your doctor if: * Trouble breathing * Continuous vomiting for more than 24 hours * Temperature above 101 degrees * Severe abdominal pain or bloating * Pain not relieved by pain medicine ordered * There is increased drainage or redness from any incision * A large amount of rectal bleeding greater than 2-3 tablespoons. (If you had a polyp/s removed or have hemorrhoids, a small amount of blood - from the rectum is to be expected.) * You have any unanswered questions or concerns. IN THE EVENT OF A SERIOUS EMERGENCY, GO TO THE NEAREST EMERGENCY ROOM Your discharge instructions were prepared by provider Jb Emery. Patient Instructions Signature Page Derian Guallpa Patient (or Guardian) Signature/Date: I have read and understand the instructions given to me by my caregivers. Caregiver/RN/Doctor Signature/Date: The above-named patient and/or guardian has received patient instructions on this date. + Original Patient Signature Page (only) stays with chart. Please make copy for patient.
--- NOTE | 2017-11-09 09:16 | Anesthesiology Progress Note ---
Anesthesia Post Op Note Date & Time Nov 09, 2017 at 09:15 Vital Signs Pain Intensity: 0 Vital Signs Past 12 Hours Date Time Temp Pulse Resp B/P (MAP) Pulse Ox O2 Delivery O2 Flow Rate FiO2 11/09/17 09:14 85 20 115/73 (87) 97 Room Air 11/09/17 08:57 72 20 114/63 (80) 98 Room Air 11/09/17 08:20 36.5 88 20 139/89 (106) 96 Room Air Notes Mental Status: alert / awake / arousable, participated in evaluation Pt Amnestic to Procedure: Yes Nausea / Vomiting: adequately controlled Pain: adequately controlled Airway Patency, RR, SpO2: stable & adequate BP & HR: stable & adequate Hydration State: stable & adequate Anesthetic Complications: no major complications apparent
[2017-11-09 09:28] VITALS: BP 123/93; PULSE 77; O2SAT 97
== END | disposition home or self-care (01) ==
LOC: C.GI 07:32
PROVIDERS: ATTEND Internal Medicine
DX: Z12.11 Encounter for screening for malignant neoplasm of colon (principal); Z85.038 Personal history of other malignant neoplasm of large intestine; K57.30 Diverticulosis of large intestine without perforation or abscess without bleeding; K64.8 Other hemorrhoids; Z90.49 Acquired absence of other specified parts of digestive tract; Z87.891 Personal history of nicotine dependence

== ENCOUNTER 2019-09-11 03:14 | Inpatient (IN) ==
[2019-09-11] MEDS ORDERED: ACETAMINOPHEN 1,000 MG/100 ML VIAL IV STA (03:32)
--- NOTE | 2019-09-11 03:38 | Emergency Department Note ---
History of Present Illness General Chief complaint: Fever Stated complaint: FEVER-103.2 S/P TOOTH EXTRACTION Time Seen by Provider: 09/11/19 03:25 Source: patient Mode of arrival: ambulatory Limitations: no limitations History of Present Illness Provider complaint: fever Onset (ago): day(s) 1 Radiation: non-radiation Severity: moderate Pain Consistency: + intermittent Maximum Pain Intensity: 8 Quality: + aching Relieved By: + none Exacerbated By: + none Associated symptoms: + fever/chills, + loss of appetite and + malaise Treatments prior to arrival: NSAID This is a 64-year-old male with a history of COPD and colon cancer who presents the emergency department this evening complaining of fevers, malaise, body aches, and decreased appetite. Patient states on Monday he had a scheduled dental extraction which went well. Patient received local anesthesia only. Patient has not had any increased drainage, bleeding, or worsening pain from the site. Patient states he noted Monday afternoon and evening he began to have subjective fevers and chills. Today then patient had loss of appetite, fatigue, worsening fevers and chills, and states his temperature at its highest got up to 103.6 tonight at home. Due to concern for persistent fever, patient return the emergency room. Patient denies any recent sick contact. Patient denies any diarrhea, vomiting, headaches, chest pain, trouble breathing, change in his cough or sputum, abdominal pain, rash or sores. Patient states he is a former smoker. Patient states he did not get a flu shot this year. Home Medications Home Medications Medication Instructions Recorded Confirmed Type albuterol sulfate 2.5 mg INH Q6H PRN #90 ml 08/15/19 09/11/19 Rx albuterol sulfate [Ventolin HFA] 2 puff INHALATION Q6H PRN 08/15/19 09/11/19 History tiotropium bromide [Spiriva with 1 cap INHALATION DAILY 09/11/19 09/11/19 History HandiHaler] Allergies Allergy/AdvReac Type Severity Reaction Status Date / Time No Known Allergies Allergy Verified 09/11/19 03:25 Past Med/Surg History Medical History (Updated 09/11/19 @ 08:50 by Payal Kim DO) Colon cancer (Chronic) "resection (partial colectomy) 2010, lung mets diagnosed in 2011, received c hemo, [facility] 08/02/17 12 x 16 nodule right upper lung" COPD (chronic obstructive pulmonary disease) (Chronic) Hip dislocation, right (Resolved) Lung metastasis (Chronic) "primary = colon Ca, first diagnoses in 2011, [facility] 08/02/17 12 x 16 nodule right upper lung" Pneumothorax on right Surgical History History of right hip replacement History of thoracotomy Status post partial colectomy (Chronic) "for adenocarcinoma of colon ~ 2010" Status post pneumonectomy Family History Brother Parkinson disease Social History (Updated 09/11/19 @ 08:46 by Payal Kim DO) Preferred Language: Estonian Communication Ability: Effective Video Network Engineer Required: No Beliefs That Will Affect Care: None Current Living Situation: Alone Other Information That Helps Us Care for You: No Feels Safe at Home: Yes Smoking Status: Current every day smoker Tobacco Type: e-cigarettes ; Cigarettes Per Day: used to smoke cigarettes lifelong, now using e-cigarettes daily ; Do You Dip or Chew Tobacco: No ; Smoking End Date: 2011 ; Second Hand Exposure: No ; Tobacco Cessation Education Requested by Patient: No Hx Alcohol Use: No Hx Substance Use: No Review of Systems See HPI for pertinent positives & negatives. Physical Exam Vital Signs Vital Signs - 24 hr 09/11/19 03:17 09/11/19 03:49 09/11/19 03:52 Temperature 39.3 C H Temperature Source Oral Pulse Rate 146 H Pulse Rate [Bilateral Apical] 130 H Pulse Rhythm [Bilateral Apical] Pulse Strength [Bilateral Apical] Respiratory Rate 18 22 Respiratory Effort / Characteristics Respiratory Depth Normal Respiratory Pattern Blood Pressure 141/78 H Blood Pressure [Left Arm] 141/90 H Blood Pressure Mean 99 Blood Pressure Mean [Left Arm] 107 Blood Pressure Position [Left Arm] Lying Pulse Oximetry 94 94 94 Oxygen Delivery Method Room Air Room Air Room Air Sepsis Recent Fever Within 48 Hours Yes Sepsis New/Unexplained Change in Mental Status No Sepsis Action Taken by Nursing No Action Required 09/11/19 04:09 09/11/19 04:29 09/11/19 04:44 Temperature 37.9 C H Temperature Source Oral Pulse Rate Pulse Rate [Bilateral Apical] 122 H 113 H 116 H Pulse Rhythm [Bilateral Apical] Pulse Strength [Bilateral Apical] Respiratory Rate 20 20 22 Respiratory Effort / Characteristics Non-Labored Spontaneous Respiratory Depth Normal Respiratory Pattern Regular Blood Pressure Blood Pressure [Left Arm] 129/72 127/77 132/77 Blood Pressure Mean Blood Pressure Mean [Left Arm] 91 93 95 Blood Pressure Position [Left Arm] Lying Pulse Oximetry 94 94 96 Oxygen Delivery Method Room Air Room Air Sepsis Recent Fever Within 48 Hours Sepsis New/Unexplained Change in Mental Status Sepsis Action Taken by Nursing 09/11/19 05:06 09/11/19 05:17 09/11/19 05:56 Temperature 37.5 C Temperature Source Oral Pulse Rate Pulse Rate [Bilateral Apical] 110 H 104 H Pulse Rhythm [Bilateral Apical] Pulse Strength [Bilateral Apical] Respiratory Rate 21 24 Respiratory Effort / Characteristics Non-Labored Spontaneous Non-Labored Spontaneous Respiratory Depth Normal Normal Respiratory Pattern Regular Regular Blood Pressure Blood Pressure [Left Arm] 113/70 120/70 Blood Pressure Mean Blood Pressure Mean [Left Arm] 84 86 Blood Pressure Position [Left Arm] Lying Lying Pulse Oximetry 94 95 Oxygen Delivery Method Room Air Room Air Sepsis Recent Fever Within 48 Hours Sepsis New/Unexplained Change in Mental Status Sepsis Action Taken by Nursing 09/11/19 06:18 09/11/19 06:30 09/11/19 07:00 Temperature Temperature Source Pulse Rate Pulse Rate [Bilateral Apical] 94 H 90 88 Pulse Rhythm [Bilateral Apical] Pulse Strength [Bilateral Apical] Respiratory Rate 16 14 18 Respiratory Effort / Characteristics Non-Labored Spontaneous Non-Labored Spontaneous Non-Labored Spontaneous Respiratory Depth Normal Normal Normal Respiratory Pattern Regular Regular Blood Pressure Blood Pressure [Left Arm] 111/78 130/75 114/84 Blood Pressure Mean Blood Pressure Mean [Left Arm] 89 93 94 Blood Pressure Position [Left Arm] Lying Lying Lying Pulse Oximetry 93 94 95 Oxygen Delivery Method Room Air Room Air Room Air Sepsis Recent Fever Within 48 Hours Sepsis New/Unexplained Change in Mental Status Sepsis Action Taken by Nursing 09/11/19 07:42 09/11/19 07:56 Temperature 36.7 C Temperature Source Pulse Rate Pulse Rate [Bilateral Apical] 86 88 Pulse Rhythm [Bilateral Apical] Regular Pulse Strength [Bilateral Apical] Normal Respiratory Rate 18 17 Respiratory Effort / Characteristics Non-Labored Spontaneous Non-Labored Spontaneous Respiratory Depth Normal Respiratory Pattern Regular Blood Pressure Blood Pressure [Left Arm] 125/81 114/73 Blood Pressure Mean Blood Pressure Mean [Left Arm] 95 86 Blood Pressure Position [Left Arm] Sitting Pulse Oximetry 96 96 Oxygen Delivery Method Room Air Room Air Sepsis Recent Fever Within 48 Hours Sepsis New/Unexplained Change in Mental Status Sepsis Action Taken by Nursing GENERAL: alert, ill appearing, well nourished, no distress, non-toxic EYE EXAM: normal conjunctiva, PERRL and EOM's grossly intact OROPHARYNX: no exudate, no erythema, lips, buccal mucosa, and tongue normal and mucous membranes are moist, site of recent dental extraction noted on the right inferior molar region. No fluctuance or drainage along the gumline, no bleeding or drainage from the incision site. It appears to be healing well. Patient with poor dentition overall. NECK: supple, no nuchal rigidity, no adenopathy, non-tender LUNGS: Clear to auscultation. Normal chest wall mechanics, no w/r/r, decreased breath sounds overall HEART: no murmurs, S1 normal and S2 normal ABDOMEN: abdomen soft, non-tender, normo-active bowel sounds, no masses, no rebo und or guarding. BACK: Back is symmetrical on inspection and there is no deformity, no midline tenderness, no CVA tenderness. SKIN: no rashes and no bruising UPPER EXTREMITIES: upper extremities are grossly normal. FROM, nml pulses b/l. LOWER EXTREMITIES: No pitting edema. FROM, nml pulses b/l. NEURO EXAM: Normal sensorium, cranial nerves II-XII grossly intact, normal speech, no gross weakness of arms, no gross weakness of legs. Gross sensation intact. Course Course 0530: Heart rate down to 106, patient now afebrile. IV fluids and IV antibiotics infusing. Patient updated on results and plan so far. Patient does admit to slight intermittent left upper chest pain with deep breath. 0715: Patient states he is feeling better. Discussed with him results of CTs. Patient agreement with plan for additional inpatient management. 0723: Case discussed with Dr. Malave for additional inpatient management. Administered Medications Acetaminophen (Tylenol) 650 mg PO Q4H PRN PRN Reason: Pain or Fever Stop: 10/11/19 09:03 Last Admin: 09/11/19 20:04 Dose: 650 mg Documented by: [id number] Admin: 09/11/19 15:33 Dose: 650 mg Documented by: [id number] Albuterol (Ventolin 0.083% 2.5mg/3ml) 2.5 mg INH Q6R PRN PRN Reason: bronchospasm Stop: 10/11/19 09:03 Last Admin: 09/11/19 18:27 Dose: 2.5 mg Documented by: [id number] Admin: 09/11/19 12:19 Dose: 2.5 mg Documented by: [id number] Enoxaparin Sodium (Lovenox) 40 mg SQ HS FAHAD Stop: 10/11/19 20:59 Last Admin: 09/11/19 20:04 Dose: 40 mg Documented by: [id number] Piperacillin Sod/Tazobactam (Sod 3.375 gm/ Dextrose) 115 mls @ 28.75 mls/hr IV Q8H FAHAD; Protocol Stop: 09/18/19 09:59 Last Admin: 09/11/19 18:57 Dose: 28.8 mls/hr Documented by: [id number] Infusion: 09/11/19 13:51 Dose: 0 mls/hr Documented by: [id number] Admin: 09/11/19 09:51 Dose: 28.8 mls/hr Documented by: [id number] Lactated Ringer's (Lr) 1,000 mls @ 125 mls/hr IV .Q8H FAHAD Stop: 09/12/19 09:59 Last Admin: 09/11/19 18:15 Dose: 125 mls/hr Documented by: [id number] Ioversol (Optiray 320 100ml) 92 ml IV ONCE PRN PRN Reason: Interaction Checking Stop: 09/15/19 05:57 Last Admin: 09/11/19 05:58 Dose: 92 ml Documented by: [id number] Miscellaneous Information (Consult) 1 ea N/A UD PRN PRN Reason: Consult Stop: 10/11/19 04:09 Last Admin: 09/11/19 04:41 Dose: 1 ea Documented by: [id number] Discontinued Medications Sodium Chloride (Nss 1000ml) 1,000 mls @ 999 mls/hr IV .Q1H1M FAHAD Stop: 09/11/19 04:45 Last Infusion: 09/11/19 05:00 Dose: 0 mls/hr Documented by: [id number] Admin: 09/11/19 03:59 Dose: 999 mls/hr Documented by: [id number] Acetaminophen (Ofirmev) 1,000 mg in 100 mls @ 400 mls/hr IV NOW STA Stop: 09/11/19 03:46 Last Infusion: 09/11/19 04:30 Dose: 0 mls/hr Documented by: [id number] Admin: 09/11/19 03:59 Dose: 400 mls/hr Documented by: [id number] Piperacillin Sod/Tazobactam Sod (Zosyn) 4.5 gm in 120 mls @ 240 mls/hr IV NOW ONE Stop: 09/11/19 04:39 Last Infusion: 09/11/19 05:11 Dose: 0 mls/hr Documented by: [id number] Admin: 09/11/19 04:41 Dose: 240 mls/hr Documented by: [id number] Vancomycin HCl 1,250 mg/ (Sodium Chloride) 525 mls @ 200 mls/hr IV NOW ONE Stop: 09/11/19 06:47 Last Infusion: 09/11/19 08:07 Dose: 0 mls/hr Documented by: [id number] Admin: 09/11/19 05:16 Dose: 200 mls/hr Documented by: [id number] Clindamycin Phosphate 600 mg/ (Dextrose) 54 mls @ 100 mls/hr IV ONE ONE Stop: 09/11/19 04:46 Last Infusion: 09/11/19 05:32 Dose: 0 mls/hr Documented by: [id number] Admin: 09/11/19 04:59 Dose: 100 mls/hr Documented by: [id number] Sodium Chloride (Nss 1000ml) 1,000 mls @ 999 mls/hr IV .Q1H1M ONE Stop: 09/11/19 05:14 Last Infusion: 09/11/19 05:42 Dose: 0 mls/hr Documented by: [id number] Admin: 09/11/19 04:41 Dose: 999 mls/hr Documented by: [id number] Sodium Chloride (Nss 1000ml) 1,000 mls @ 999 mls/hr IV .Q1H1M ONE Stop: 09/11/19 06:31 Last Infusion: 09/11/19 07:04 Dose: 0 mls/hr Documented by: [id number] Admin: 09/11/19 06:01 Dose: 999 mls/hr Documented by: [id number] Miscellaneous Information (Consult) 1 ea N/A UD ONE Stop: 09/11/19 04:11 Last Admin: 09/11/19 04:41 Dose: Not Given Documented by: [id number] Miscellaneous Information (Consult) 1 ea N/A UD PRN PRN Reason: Consult Stop: 10/11/19 04:09 Last Admin: 09/11/19 04:41 Dose: 1 ea Documented by: [id number] Medical Decision Making Medical Records Attestation: I reviewed the patient's medical records. Home Medications Current Medication List: was personally reviewed by me Laboratory Data Attestation: I reviewed the patient's lab results. Result diagrams: 09/11/19 03:40 09/11/19 03:40 Lab Results 09/11/19 09/11/19 09/11/19 Range/Units 03:38 03:40 03:40 WBC 14.18 H (4.8-10.8) K/uL RBC 4.63 L (4.7-6.1) M/uL Hgb 14.6 (14.0-18.0) g/dL Hct 40.8 L (42-52) % MCV 88.1 (80-100) fL MCH 31.5 (25-34) pg MCHC 35.8 (32-36) g/dL RDW Std Deviation 41.6 (36.4-46.3) fL RDW Coeff of Bear 13.0 (11.5-14.5) % Plt Count 269 (130-400) K/uL MPV 10.3 (7.4-10.4) fL Immature Gran % (Auto) 0.4 % Neut % (Auto) 90.3 % Lymph % (Auto) 4.4 % [place] % (Auto) 4.1 % Eos % (Auto) 0.7 % Baso % (Auto) 0.1 % Immature Gran # (Auto) 0.05 H (0.00-0.02) K/uL Neut # (Auto) 12.81 H (1.4-6.5) K/uL Lymph # (Auto) 0.63 L (1.2-3.4) K/uL [place] # (Auto) 0.58 (0.11-0.59) K/uL Eos # (Auto) 0.10 (0-0.5) K/uL Baso # (Auto) 0.01 (0-0.2) K/uL PT 10.8 (9.0-12.0) Seconds INR 1.1 (0.9-1.1) APTT 22.8 (21.0-31.0) Seconds PTT Ratio 0.8 Sodium (136-145) mmol/L Potassium (3.5-5.1) mmol/L Chloride (98-107) mmol/L Carbon Dioxide (21-32) mmol/L Anion Gap (3-11) BUN (7-18) mg/dl Creatinine (0.6-1.4) mg/dl Est Cr Clr Drug Dosing ml/min Est GFR ( Amer) Est GFR (Non-Af Amer) BUN/Creatinine Ratio (10-20) Glucose (70-99) mg/dl POC Lactic Acid Michele (0.90-1.70) mmol/L Calcium (8.5-10.1) mg/dl Total Bilirubin (0.2-1) mg/dl AST (15-37) U/L ALT (12-78) U/L Alkaline Phosphatase (45-117) U/L Troponin I (0-0.045) ng/ml Total Protein (6.4-8.2) gm/dl Albumin (3.4-5.0) gm/dl Globulin (2.5-4.0) gm/dl Albumin/Globulin Ratio (0.9-2) Procalcitonin (0-0.5) ng/ml Urine Color Urine Appearance (Clear) Urine pH (4.5-7.5) Ur Specific [place] (1.000-1.030) Urine Protein (Negative) Urine Glucose (UA) (Negative) Urine Ketones (Negative) Urine Blood (Negative) Urine Nitrite (Negative) Urine Bilirubin (Negative) Urine Urobilinogen (Negative) Ur Leukocyte Esterase (Negative) Influenza Type A (PCR) Neg for Influ A (Neg) Influenza Type B (PCR) Neg for Influ B (Neg) 09/11/19 09/11/19 09/11/19 Range/Units 03:40 03:40 03:40 WBC (4.8-10.8) K/uL RBC (4.7-6.1) M/uL Hgb (14.0-18.0) g/dL Hct (42-52) % MCV (80-100) fL MCH (25-34) pg MCHC (32-36) g/dL RDW Std Deviation (36.4-46.3) fL RDW Coeff of Bear (11.5-14.5) % Plt Count (130-400) K/uL MPV (7.4-10.4) fL Immature Gran % (Auto) % Neut % (Auto) % Lymph % (Auto) % [place] % (Auto) % Eos % (Auto) % Baso % (Auto) % Immature Gran # (Auto) (0.00-0.02) K/uL Neut # (Auto) (1.4-6.5) K/uL Lymph # (Auto) (1.2-3.4) K/uL [place] # (Auto) (0.11-0.59) K/uL Eos # (Auto) (0-0.5) K/uL Baso # (Auto) (0-0.2) K/uL PT (9.0-12.0) Seconds INR (0.9-1.1) APTT (21.0-31.0) Seconds PTT Ratio Sodium 134 L (136-145) mmol/L Potassium 3.5 (3.5-5.1) mmol/L Chloride 105 (98-107) mmol/L Carbon Dioxide 25 (21-32) mmol/L Anion Gap 4.0 (3-11) BUN 9 (7-18) mg/dl Creatinine 1.14 (0.6-1.4) mg/dl Est Cr Clr Drug Dosing 63.2 ml/min Est GFR ( Amer) 78.9 Est GFR (Non-Af Amer) 68.1 BUN/Creatinine Ratio 7.5 L (10-20) Glucose 140 H (70-99) mg/dl POC Lactic Acid Michele 1.06 (0.90-1.70) mmol/L Calcium 8.9 (8.5-10.1) mg/dl Total Bilirubin 0.9 (0.2-1) mg/dl AST 14 L (15-37) U/L ALT 19 (12-78) U/L Alkaline Phosphatase 90 (45-117) U/L Troponin I < 0.015 (0-0.045) ng/ml Total Protein 8.2 (6.4-8.2) gm/dl Albumin 3.4 (3.4-5.0) gm/dl Globulin 4.8 H (2.5-4.0) gm/dl Albumin/Globulin Ratio 0.7 L (0.9-2) Procalcitonin 0.16 (0-0.5) ng/ml Urine Color Urine Appearance (Clear) Urine pH (4.5-7.5) Ur Specific [place] (1.000-1.030) Urine Protein (Negative) Urine Glucose (UA) (Negative) Urine Ketones (Negative) Urine Blood (Negative) Urine Nitrite (Negative) Urine Bilirubin (Negative) Urine Urobilinogen (Negative) Ur Leukocyte Esterase (Negative) Influenza Type A (PCR) (Neg) Influenza Type B (PCR) (Neg) 09/11/19 Range/Units 04:56 WBC (4.8-10.8) K/uL RBC (4.7-6.1) M/uL Hgb (14.0-18.0) g/dL Hct (42-52) % MCV (80-100) fL MCH (25-34) pg MCHC (32-36) g/dL RDW Std Deviation (36.4-46.3) fL RDW Coeff of Bear (11.5-14.5) % Plt Count (130-400) K/uL MPV (7.4-10.4) fL Immature Gran % (Auto) % Neut % (Auto) % Lymph % (Auto) % [place] % (Auto) % Eos % (Auto) % Baso % (Auto) % Immature Gran # (Auto) (0.00-0.02) K/uL Neut # (Auto) (1.4-6.5) K/uL Lymph # (Auto) (1.2-3.4) K/uL [place] # (Auto) (0.11-0.59) K/uL Eos # (Auto) (0-0.5) K/uL Baso # (Auto) (0-0.2) K/uL PT (9.0-12.0) Seconds INR (0.9-1.1) APTT (21.0-31.0) Seconds PTT Ratio Sodium (136-145) mmol/L Potassium (3.5-5.1) mmol/L Chloride (98-107) mmol/L Carbon Dioxide (21-32) mmol/L Anion Gap (3-11) BUN (7-18) mg/dl Creatinine (0.6-1.4) mg/dl Est Cr Clr Drug Dosing ml/min Est GFR ( Amer) Est GFR (Non-Af Amer) BUN/Creatinine Ratio (10-20) Glucose (70-99) mg/dl POC Lactic Acid Michele (0.90-1.70) mmol/L Calcium (8.5-10.1) mg/dl Total Bilirubin (0.2-1) mg/dl AST (15-37) U/L ALT (12-78) U/L Alkaline Phosphatase (45-117) U/L Troponin I (0-0.045) ng/ml Total Protein (6.4-8.2) gm/dl Albumin (3.4-5.0) gm/dl Globulin (2.5-4.0) gm/dl Albumin/Globulin Ratio (0.9-2) Procalcitonin (0-0.5) ng/ml Urine Color Yellow Urine Appearance Clear (Clear) Urine pH 5.5 (4.5-7.5) Ur Specific [place] 1.010 (1.000-1.030) Urine Protein Negative (Negative) Urine Glucose (UA) Negative (Negative) Urine Ketones Negative (Negative) Urine Blood Negative (Negative) Urine Nitrite Negative (Negative) Urine Bilirubin Negative (Negative) Urine Urobilinogen Negative (Negative) Ur Leukocyte Esterase Negative (Negative) Influenza Type A (PCR) (Neg) Influenza Type B (PCR) (Neg) Imaging Data Radiologist's Impression: CT facial bones w con HISTORY: 64 years-old Male right lower extraction, fever acute fever and facial pain status post recent dental extraction COMPARISON: Chest CT of same day TECHNIQUE: Multiple axial CT images of the maxillofacial bones were obtained following the intravenous ministration of 92 mL Optiray 320 IV contrast. A dose lowering technique was used consistent with the principals of ALARA. FINDINGS: Orbits and imaged intracranial structures appear unremarkable. The bilateral parotid and submandibular glands are unremarkable. Mildly enlarged level 2 cervical chain lymph nodes are present bilaterally measuring up to 11 mm on the right. There is mild symmetric prominence of the bilateral palatine tonsils. Secretions noted within the vallecula and piriform sinuses. The imaged glottis is unremarkable. There is no drainable fluid collection or significant inflammatory stranding identified. The imaged vascular structures appear unremarkable. Dominant left vertebral artery. Advanced degenerative changes are noted of the right temporal mandibular joint. Degenerative changes noted about the imaged cervical spine. The mastoid air cells are clear. Minimal mucosal thickening of the ethmoid sinuses and nasal terminates. Mild rightward bowing and spurring of the nasal septum. No acute facial bone fracture identified. Patient has no maxillary teeth and only a few mandibular teeth. Findings are suggestive of recent dental extraction within the right mid mandibular body distribution with removal of one of the bicuspids. No associated abscess identified. IMPRESSION: 1. Evidence of recent right mandibular dental extraction. No significant inflammatory stranding or drainable fluid collection to suggest abscess. 2. Mild paranasal sinus disease. 3. No acute facial bone fracture. 4. Mildly enlarged bilateral level II cervical chain lymph nodes, likely reactive. ACT 112: Negative or not required by law. The above report was generated using voice recognition software. It may contain grammatical, syntax or spelling errors. Electronically signed by: Jasbir Ortega M.D. 09/11/2019 6:[address] chest with contrast: Prior CT chest from 08/02/2017 and PET/CT from 09/13/20 17. Some artifact. No central PE. No aortic dissection or aneurysm. Diffuse emphysema. Postop changes right lung with interval resection of the nodule seen on prior. Slight nodularity/scarring adjacent to sutures. Patchy airspace disease in the left upper lobe surrounding of edematous changes. New since prior. May represent pneumonia. Consider follow-up. Radiologist: Maritza Ryan M.D. ECG Data Attestation: I personally reviewed and interpreted this ECG as follows: Indication: + tachycardia Rate (beats per minute): 135 Rhythm: + sinus tachycardia ECG Intervals/blocks: + Normal QRS and + Normal QT ECG [place]: + Normal ECG ST segments: + Normal ST segments Blood Pressure Blood Pressure Findings: Elevated blood pressure Blood Pressure Disposition: further management by hospitalist AHMET Narrative Pt here ill appearing initially however did improved with fever control and IVF. Cultures drawn and sent and labs checked as well as imaging due to concern for sepsis. GIven recent dental extraction clindamycin added to IV antibiotics. Pt with likely pneumonia on cxr, however given complicated pulmonary hx including prior resection, pt sent to CT. No other recent travel or sick contact, no hx of aspiration, flu negative. Given severity of symtpoms initially, case discussed with hospitalist. Pt not requiring oxygen here, slightly increased WOB noted. Pt did not require other supplemental oxygen or bipap. Impression & Plan Sepsis, COPD (chronic obstructive pulmonary disease), Pneumonia Discharge Plan Visit Data *Final* Discharge Date/Time: 09/11/19 08:27 Chief Complaint: Fever Stated Complaint: FEVER-103.2 S/P TOOTH EXTRACTION ED Provider: Hamida Hudson Discharge Problem: Sepsis, COPD (chronic obstructive pulmonary disease), Pneumonia Patient Disposition: Admitted As Inpatient Condition: Good Discharge Instructions Interventions: ED Discharge Assessment Last Done: 09/11/19 08:27 Discharge Problem: Sepsis Qualifiers: Sepsis type: sepsis due to unspecified organism Sepsis acute organ dysfunction status: without acute organ dysfunction Qualified Code(s): A41.9 - Sepsis, unspecified organism COPD (chronic obstructive pulmonary disease) Qualifiers: COPD type: unspecified COPD Qualified Code(s): J44.9 - Chronic obstructive pulmonary disease, unspecified Pneumonia Qualifiers: Pneumonia type: due to unspecified organism Laterality: left Lung location: upper lobe of lung Qualified Code(s): J18.9 - Pneumonia, unspecified organism
[2019-09-11] MEDS ORDERED: SODIUM CHLORIDE 0.9% 1000ML 1,000 ML IV SCH (03:45)
[2019-09-11 03:54] LABS: Basophils # (auto) 0.01 K/uL (0-0.2); Basophils % (auto) 0.1 %; Eosinophils % (auto) 0.7 %; Hematocrit (blood only) 40.8 % (42-52); Hemoglobin 14.6 g/dL (14.0-18.0); Immature Granulocytes # (auto) 0.05 K/uL (0.00-0.02); Immature Granulocytes % (auto) 0.4 %; Lymphocytes # (auto) 0.63 K/uL (1.2-3.4); Lymphocytes % (auto) 4.4 %; Mean Corpuscular Hemoglobin 31.5 pg (25-34); Mean Corpuscular Hgb Conc 35.8 g/dL (32-36); Mean Corpuscular Volume 88.1 fL (80-100); Mean Platelet Volume 10.3 fL (7.4-10.4); Monocytes # (auto) 0.58 K/uL (0.11-0.59); Monocytes % (auto) 4.1 %; Neutrophils # (auto) 12.81 K/uL (1.4-6.5); Neutrophils % (auto) 90.3 %; Platelet Count 269 K/uL (130-400); RDW Standard Deviation 41.6 fL (36.4-46.3); Red Blood Count 4.63 M/uL (4.7-6.1); White Blood Count 14.18 K/uL (4.8-10.8)
[2019-09-11 04:08] LABS: INR 1.1 (0.9-1.1); Partial Thromboplastin Ratio 0.8; Partial Thromboplastin Time 22.8 Seconds (21.0-31.0); Prothrombin Time 10.8 Seconds (9.0-12.0)
[2019-09-11] MEDS ORDERED: VANCOMYCIN CONSULT ACTIVE ONE (04:10)
[2019-09-11] MEDS ORDERED: PIPERACILL/TAZOBAC CONSULT ACTIVE PRN (04:10)
[2019-09-11] MEDS ORDERED: PIPERACILLIN/TAZOBACTAM 4.5 GM/120 ML BAG IV ONE (04:10)
[2019-09-11] MEDS ORDERED: VANCOMYCIN CONSULT ACTIVE PRN (04:10)
[2019-09-11] MEDS ORDERED: VANCOMYCIN HCL 1,250 MG in SODIUM CHLORIDE 0.9% 500 ML IV ONE (04:10)
[2019-09-11 04:12] LABS: Alanine Aminotransferase 19 U/L (12-78); Albumin Level 3.4 gm/dl (3.4-5.0); Aspartate Aminotransferase 14 U/L (15-37); BUN Creatinine Ratio 7.5 (10-20); Blood Urea Nitrogen 9 mg/dl (7-18); Calcium 8.9 mg/dl (8.5-10.1); Carbon Dioxide 25 mmol/L (21-32); Chloride 105 mmol/L (98-107); Creatinine Clr Calc Pharmacy 63.2 ml/min; Est GFR (African American) 78.9; Est GFR (Non-African American) 68.1; Glucose 140 mg/dl (70-99); Potassium 3.5 mmol/L (3.5-5.1); Sodium 134 mmol/L (136-145)
[2019-09-11 04:13] LABS: Influenza A virus by PCR Neg for Influ A (Neg); Influenza B virus by PCR Neg for Influ B (Neg)
[2019-09-11] MEDS ORDERED: SODIUM CHLORIDE 0.9% 1000ML 1,000 ML IV ONE ×2 (04:14→05:31)
[2019-09-11] MEDS ORDERED: CLINDAMYCIN 600 MG in DEXTROSE 5% 50 ML IV ONE (04:14)
[2019-09-11 04:16] LABS: Albumin Globulin Ratio 0.7 (0.9-2); Alkaline Phosphatase 90 U/L (45-117); Bilirubin,Total 0.9 mg/dl (0.2-1); Globulin 4.8 gm/dl (2.5-4.0); Total Protein 8.2 gm/dl (6.4-8.2); Troponin I < 0.015 ng/ml (0-0.045)
[2019-09-11 05:25] LABS: Appearance Urine Clear (Clear); Bilirubin Urine Negative (Negative); Blood Urine Negative (Negative); Color Urine Yellow; Glucose Urine UA Negative (Negative); Ketones Urine Negative (Negative); Leukocyte Esterase Urine Negative (Negative); Nitrite Urine Negative (Negative); Protein Urine Negative (Negative); Urobilinogen Urine Negative (Negative); pH Urine 5.5 (4.5-7.5)
[2019-09-11] MEDS ORDERED: IOVERSOL 100ml IV PRN (05:58)
--- NOTE | 2019-09-11 06:49 | CT Scan Report ---
CT facial bones w con HISTORY: 64 years-old Male right lower extraction, fever acute fever and facial pain status post rec ent dental extraction COMPARISON: Chest CT of same day TECHNIQUE: Multiple axial CT images of the maxillofacial bones were obtained following the intravenou s ministration of 92 mL Optiray 320 IV contrast. A dose lowering technique was used consistent with alvaro staton principals of ANGELA. FINDINGS: Orbits and imaged intracranial structures appear unremarkable. The bilateral parotid and submandibula r glands are unremarkable. Mildly enlarged level 2 cervical chain lymph nodes are present bilaterally measuring up to 11 mm on the right. There is mild symmetric prominence of the bilateral palatine ton sils. Secretions noted within the vallecula and piriform sinuses. The imaged glottis is unremarkable. There is no drainable fluid collection or significant inflammatory stranding identified. The imaged vascular structures appear unremarkable. Dominant left vertebral artery. Advanced degenerative change s are noted of the right temporal mandibular joint. Degenerative changes noted about the imaged cervical spine. The mastoid air cells are clear. Minimal mucosal thickening of the ethmoid sinuses and nasal terminates. Mild rightward bowing and spurring of the nasal septum. No acute facial bone fracture identified. Patient has no maxillary teeth and only a few mandibular teeth. Findings are suggestive of recent dental extraction within the right mid kelly ibular body distribution with removal of one of the bicuspids. No associated abscess identified. IMPRESSION: 1. Evidence of recent right mandibular dental extraction. No significant inflammatory stranding or dr ainable fluid collection to suggest abscess. 2. Mild paranasal sinus disease. 3. No acute facial bone fracture. 4. Mildly enlarged bilateral level II cervical chain lymph nodes, likely reactive. ACT 112: Negative or not required by law. The above report was generated using voice recognition software. It may contain grammatical, syntax o r spelling errors. Electronically signed by: Jasbir Ortega M.D. 09/11/2019 6:47 AM
--- NOTE | 2019-09-11 07:03 | XRay Report ---
XR chest 1V portable HISTORY: 64 years-old Male Sepsis acute sepsis COMPARISON: Chest radiograph 10/15/2017, chest CT 09/11/2019 TECHNIQUE: Portable AP view of the chest FINDINGS: Cardiomediastinal and hilar silhouettes are unchanged. There are patchy alveolar opacities noted with in the left upper lobe which are new from comparison. Severe emphysema with chronic fibrotic changes. There is no pneumothorax, pleural effusion or overt pulmonary edema. Postoperative changes of the ri ght upper lung. Multiple healed remote right-sided rib fractures. IMPRESSION: 1. Patchy alveolar opacities of the left upper lobe suggest pneumonia. 2. Severe emphysema with chronic fibrotic changes. 3. Postoperative changes of the right upper lung. ACT 112: Negative or not required by law. The above report was generated using voice recognition software. It may contain grammatical, syntax o r spelling errors. Electronically signed by: Jasbir Ortega M.D. 09/11/2019 7:02 AM
--- NOTE | 2019-09-11 07:49 | CT Scan Report ---
CHEST CT WITH CONTRAST CT DOSE: 719.87 mGy.cm HISTORY: Acute fever with difficulty breathing fever, copd, ?infiltrate TECHNIQUE: Multiaxial CT images of the chest were performed following the IV administration of 92 cc of Optiray 320. A dose lowering technique was utilized adhering to the principles of ALARA. COMPARISON: Chest radiograph of same day, CT chest 08/02/2017 FINDINGS: 1. Unremarkable thyroid. Mildly enlarged paratracheal/AP window lymph nodes measure up to 11 mm in sh ort axis. Heart is normal in size without pericardial effusion. Fusiform prominence of the ascending thoracic aorta, 3.9 x 4.0 cm. There is patency of the imaged great vessels. Moderate mixed plaque of the thoracic aorta. The opacified pulmonary artery is unremarkable. Severe emphysema with chronic fibrotic changes. Postoperative changes of the right upper lobe from pr ior wedge resection of the previously described pulmonary nodule. There is mild linear/nodular consol idation adjacent to the suture line measuring up to 1.5 x 0.9 cm on image 131 series 4. Patchy alveol ar opacities of the left upper lobe. No pneumothorax or pleural effusion. No overt pulmonary edema. 3 mm subpleural solid nodule of the basal left lower lobe, image 237 series 4 is unchanged and likely benign. No new or enlarging suspicious pulmonary nodules or masses. Central airways are patent. Mild nonspecific bilateral perinephric stranding. Soft tissues are unremarkable. Degenerative changes of the shoulders and spine. IMPRESSION: 1. Patchy alveolar opacities of the left upper lobe are suspicious for pneumonia. Follow-up recommend ed. 2. Severe emphysema. 3. Postoperative changes from prior wedge resection of the right upper lobe with removal of the previ ously described suspicious pulmonary nodule. Linear consolidation adjacent to the suture line measuri ng up to 1.5 x 0.9 cm is suggestive of probable pleural parenchymal scarring. Attention at follow-up recommended. 4. Mild left paratracheal/AP window adenopathy, likely reactive. ACT 112: Negative or not required by law. Electronically signed by: Jasbir Ortega M.D. 09/11/2019 7:48 AM
--- OUTSIDE RECORDS SUMMARY | 2019-09-11 07:50 | External Medical Summary | Continuity of Care Document ---
:1955 Author Name Kam Epstein Address Unavailable Unavailable , Care Team Providers Name Role Phone NonMNPG M.D. Unavailable [email or web address] Ellie Huber Unavailable Unavailable Unavailable Unavailable Unavailable Problems Pulmonary nodule (793.11) (R91.1) Allergies and Adverse Reactions No Known Drug Allergies (Allergy) Medications No Reported Medications Refills: 0 Procedures History of lung wedge resection Status: Completed History of lung surgery Status: Complete d Immunizations Immunizations not documented Social History - Smoking Status Former smoker Plan of Treatment Planned Observations Planned Goals not documented Results No Known Results Results not documented Encounters Appointment; Zeferino Brooks M.D. 20-Oct-2017 9:45 Encounter Diagnosis: Problem not documented Appointment; Zeferino Brooks M.D. 11-Oct-2017 9:30 Encounter Diagnosis: Problem not documented Appointment; Zeferino Brooks M.D. 03-Oct-2017 9:45 Encounter Diagnosis: Problem not documented
--- OUTSIDE RECORDS SUMMARY | 2019-09-11 07:50 | External Medical Summary | Continuity of Care Document ---
:1955 Author Name Kam Epstein Address Unavailable Unavailable , Care Team Providers Name Role Phone NonMNPG M.D. Unavailable [email or web address] Ellie Huber Unavailable Unavailable Unavailable Unavailable Unavailable [...]
--- NOTE | 2019-09-11 07:57 | History & Physical Report ---
Date of Service September 11, 2019 Assessment & Plan (1) Sepsis: Possible sources include but not limited to pneumonia vs odotogenic infection. Covered with vanc and zosyn for now. Nasal swab to rule out MRSA. Flu is negative. Blood cultures pending. (2) Pneumonia: Plan as above. Incentive spirometry, encouraged to ambulate as tolerated. (3) History of tooth extraction: post-op recovery has been uneventful outside of recent symptoms. He is tolerating food and denies pain. (4) COPD (chronic obstructive pulmonary disease): chronic, no recent changes or concerns for exacerbation. Cont daily spiriva and prn albuterol nebulizer per home regimen. Pt also uses oxygen PRN ambulation at home, but not continuously (5) Colon cancer: h/o colon cancer with mets s/p partial colectomy and two wedge resections of the lungs for metastatic disease. Currently in remission. (6) DVT prophylaxis: Lovenox Full Code as discussed with patient on admission Dispo-PCU Payal Kim DO [facility] Hospitalist History of Present Illness Chief Complaint: fever Primary Care Provider: Prosper Huber MD 64 yo M who is frequently laboring outdoors presents with sepsis. 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 He developed acute tooth pain on mon, and went for a dental extraction under local anesthesia on Monday. No stitches were placed. No periprocedure antibiotics were reportedly given per patient. That evening he went home and reported having a fever. The following day his fever increased and was 103F. He reports a chronic cough from smoking without any changes in quality or sputum. He denies any chest pain but does have some L scapular pain present when he takes a deep breath. He denies any sinus pressure or sore throat and has no tooth pain locally. There is no sinus pressure to palpation or LAD present in the head or neck on exam and no pain to palpation of the neck. TM are pearly, and no fluid is present in middle ear today despite a report of bilateral ear fullness. He reports chronic tinnitus related to occupational hearing loss. He has been using debrox solution over the past couple of weeks. He denies any vomiting and has been tolerating food without issue. He reports some achy joints when the fevers come on and fevers are associated with chills. He denies any changes in his stool. Today in the ER he was febrile and tachycardic and was administered 3L of normal saline as well as vancomycin and zosyn. Lactate was normal. Blood cultures are drawn and pending. Imaging studies revealed evidence of patchy opacities in the NOLA consistent with pneumonia, and face CT was negative for an odotogenic infection or abscess. Cervical chain lymph nodes were present that were thought reactive. Allergies Allergy/AdvReac Type Severity Reaction Status Date / Time No Known Allergies Allergy Verified 09/11/19 03:25 Home Medications Home Medications Medication Instructions Recorded Confirmed Type albuterol sulfate 2.5 mg INH Q6H PRN #90 ml 08/15/19 09/11/19 Rx albuterol sulfate [Ventolin HFA] 2 puff INHALATION Q6H PRN 08/15/19 09/11/19 History tiotropium bromide [Spiriva with 1 cap INHALATION DAILY 09/11/19 09/11/19 History HandiHaler] Past Med/Surg History Medical History (Updated 09/11/19 @ 08:50 by Payal Kim DO) Colon cancer (Chronic) "resection (partial colectomy) 2010, lung mets diagnosed in 2011, received chemo, [facility], [place] 08/02/17 12 x 16 nodule right upper lung" COPD (chronic obstructive pulmonary disease) (Chronic) Hip dislocation, right (Resolved) Lung metastasis (Chronic) "primary = colon Ca, first diagnoses in 2011, CT [facility], [place] 08/02/17 12 x 16 nodule right upper lung" Pneumothorax on right Surgical History History of right hip replacement History of thoracotomy Status post partial colectomy (Chronic) "for adenocarcinoma of colon ~ 2010" Status post pneumonectomy Family History Brother Parkinson disease Social History (Updated 09/11/19 @ 08:46 by Payal Kim DO) Preferred Language: Hungarian Communication Ability: Effective [place] Straightener Stamper Required: No Beliefs That Will Affect Care: None Current Living Situation: Alone Other Information That Helps Us Care for You: No Feels Safe at Home: Yes Smoking Status: Current every day smoker Tobacco Type: e-cigarettes ; Cigarettes Per Day: used to smoke cigarettes lifelong, now using e-cigarettes daily ; Do You Dip or Chew Tobacco: No ; Smoking End Date: 2011 ; Second Hand Exposure: No ; Tobacco Cessation Education Requested by Patient: No Hx Alcohol Use: No Hx Substance Use: No Review of Systems Review of Systems: At least ten systems were reviewed and negative except as indicated in HPI above. Physical Exam Physical Exam: CONSTITUTIONAL: WNWD, vitals as above, generally well- appearing EYES: EOMI bilaterally, PERRL, normal conjunctivae, no scleral icterus ENT: external ear and nose normal, oropharynx clear, no TM abnormality, no maxillary or ethmoid sinus tenderness. Evidence of R mandibular extraction without pain to palpation, gum changes or drainage. No stitches present. NECK: trachea midline, no lymphadenopathy RESPIRATORY: rales along entire left lung field. No wheezing. Good air movement. Normal respiratory effort CARDIOVASCULAR: regular rate and rhythm, S1 and 2 heard without murmurs, gallops or rubs, no JVD, no peripheral edema CHEST: inspection of chest was normal GASTROINTESTINAL: soft, nontender, nondistended MUSCULOSKELETAL: strength 5/5 throughout, head is normocephalic and atraumatic SKIN: warm and dry NEUROLOGIC: CN 2-12 grossly intact, normal cognition, normal speech, no gross focal deficits. PSYCHIATRIC: alert cooperative and oriented to person, place and time. Results & Data Vital Signs (Past 12 Hours) Vital Signs Temp Pulse Pulse Resp BP BP Pulse Ox 09/11/19 07:00 88 18 114/84 95 09/11/19 06:30 90 14 130/75 94 09/11/19 06:18 94 H 16 111/78 93 09/11/19 05:56 104 H 24 120/70 95 09/11/19 05:17 37.5 C 09/11/19 05:06 110 H 21 113/70 94 09/11/19 04:44 116 H 22 132/77 96 09/11/19 04:29 37.9 C H 113 H 20 127/77 94 09/11/19 04:09 122 H 20 129/72 94 09/11/19 03:52 94 09/11/19 03:49 130 H 22 141/90 H 94 09/11/19 03:17 39.3 C H 146 H 18 141/78 H 94 Laboratory Results Short CBC 09/11/19 Range/Units 03:40 WBC 14.18 H (4.8-10.8) K/uL Hgb 14.6 (14.0-18.0) g/dL Hct 40.8 L (42-52) % Plt Count 269 (130-400) K/uL BMP 09/11/19 03:40 Sodium 134 L Potassium 3.5 Chloride 105 Carbon Dioxide 25 BUN 9 Creatinine 1.14 Glucose 140 H Calcium 8.9 Cardiac Enzymes 09/11/19 Range/Units 03:40 Troponin I < 0.015 (0-0.045) ng/ml Liver Function 09/11/19 Range/Units 03:40 Total Bilirubin 0.9 (0.2-1) mg/dl AST 14 L (15-37) U/L ALT 19 (12-78) U/L Alkaline Phosphatase 90 (45-117) U/L Albumin 3.4 (3.4-5.0) gm/dl Urine 09/11/19 Range/Units 04:56 Urine Color Yellow Urine Appearance Clear (Clear) Urine pH 5.5 (4.5-7.5) Ur Specific [place] 1.010 (1.000-1.030) Urine Protein Negative (Negative) Urine Glucose (UA) Negative (Negative) Diagnostic Findings CT facial bones w con FINDINGS: Orbits and imaged intracranial structures appear unremarkable. The bilateral parotid and submandibular glands are unremarkable. Mildly enlarged level 2 cervical chain lymph nodes are present bilaterally measuring up to 11 mm on the right. There is mild symmetric prominence of the bilateral palatine tonsils. Secretions noted within the vallecula and piriform sinuses. The imaged glottis is unremarkable. There is no drainable fluid collection or significant inflammatory stranding identified. The imaged vascular structures appear unremarkable. Dominant left vertebral artery. Advanced degenerative changes are noted of the right temporal mandibular joint. Degenerative changes noted about the imaged cervical spine. The mastoid air cells are clear. Minimal mucosal thickening of the ethmoid sinuses and nasal terminates. Mild rightward bowing and spurring of the nasal septum. No acute facial bone fracture identified. Patient has no maxillary teeth and only a few mandibular teeth. Findings are suggestive of recent dental extraction within the right mid mandibular body distribution with removal of one of the bicuspids. No associated abscess identified. IMPRESSION: 1. Evidence of recent right mandibular dental extraction. No significant inflammatory stranding or drainable fluid collection to suggest abscess. 2. Mild paranasal sinus disease. 3. No acute facial bone fracture. 4. Mildly enlarged bilateral level II cervical chain lymph nodes, likely reactive. CHEST CT WITH CONTRAST FINDINGS: 1. Unremarkable thyroid. Mildly enlarged paratracheal/AP window lymph nodes measure up to 11 mm in short axis. Heart is normal in size without pericardial effusion. Fusiform prominence of the ascending thoracic aorta, 3.9 x 4.0 cm. There is patency of the imaged great vessels. Moderate mixed plaque of the thoracic aorta. The opacified pulmonary artery is unremarkable. Severe emphysema with chronic fibrotic changes. Postoperative changes of the right upper lobe from prior wedge resection of the previously described pulmonary nodule. There is mild linear/nodular consolidation adjacent to the suture line measuring up to 1.5 x 0.9 cm on image 131 series 4. Patchy alveolar opacities of the left upper lobe. No pneumothorax or pleural effusion. No overt pulmonary edema. 3 mm subpleural solid nodule of the basal left lower lobe, image 237 series 4 is unchanged and likely benign. No new or enlarging suspicious pulmonary nodules or masses. Central airways are patent. Mild nonspecific bilateral perinephric stranding. Soft tissues are unremarkable. Degenerative changes of the shoulders and spine. IMPRESSION: 1. Patchy alveolar opacities of the left upper lobe are suspicious for pneumonia. Follow-up recommended. 2. Severe emphysema. 3. Postoperative changes from prior wedge resection of the right upper lobe with removal of the previously described suspicious pulmonary nodule. Linear consolidation adjacent to the suture line measuring up to 1.5 x 0.9 cm is suggestive of probable pleural parenchymal scarring. Attention at follow-up recommended. 4. Mild left paratracheal/AP window adenopathy, likely reactive. XR chest 1V portable FINDINGS: Cardiomediastinal and hilar silhouettes are unchanged. There are patchy alveolar opacities noted within the left upper lobe which are new from comparison. Severe emphysema with chronic fibrotic changes. There is no pneumothorax, pleural effusion or overt pulmonary edema. Postoperative changes of the right upper lung. Multiple healed remote right-sided rib fractures. IMPRESSION: 1. Patchy alveolar opacities of the left upper lobe suggest pneumonia. 2. Severe emphysema with chronic fibrotic changes. 3. Postoperative changes of the right upper lung. (1) Sepsis Sepsis acute organ dysfunction status: without acute organ dysfunction Sepsis type: sepsis due to unspecified organism Qualified Code(s): A41.9 - Sepsis, unspecified organism (2) COPD (chronic obstructive pulmonary disease) COPD type: unspecified COPD Qualified Code(s): J44.9 - Chronic obstructive pulmonary disease, unspecified (3) Pneumonia Laterality: left Lung location: upper lobe of lung Pneumonia type: due to unspecified organism Qualified Code(s): J18.9 - Pneumonia, unspecified organism
[2019-09-11] MEDS ORDERED: ALBUTEROL HFA 8 GM INHALER INH PRN (09:04)
[2019-09-11] MEDS ORDERED: ONDANSETRON INJ 2 MG/ML 2 ML VIAL IV PRN (09:04)
[2019-09-11] MEDS ORDERED: POLYETHYLENE (MIRALAX) 17 GM PACK PO PRN (09:04)
[2019-09-11] MEDS: PIPERACILLIN/TAZOBACTAM 3.375 GM in DEXTROSE 5% 100 ML IV SCH ×2 (09:51→18:57)
[2019-09-11] MEDS: ALBUTEROL 0.083% NEBU SOLN 3 ML VIAL INH PRN ×2 (12:19→18:27)
[2019-09-11] MEDS: ACETAMINOPHEN 325 MG TAB PO PRN ×2 (15:33→20:04)
[2019-09-11] MEDS: LACTATED RINGER'S 1,000 ML IV SCH (18:15)
[2019-09-11] MEDS: ENOXAPARIN INJ 40 MG/0.4 ML SYR SQ SCH (20:04)
[2019-09-12] MEDS: LACTATED RINGER'S 1,000 ML IV SCH (01:17)
[2019-09-12] MEDS: ACETAMINOPHEN 325 MG TAB PO PRN ×3 (01:17→21:20)
[2019-09-12] MEDS: PIPERACILLIN/TAZOBACTAM 3.375 GM in DEXTROSE 5% 100 ML IV SCH ×3 (01:17→19:12)
[2019-09-12 07:29] LABS: Hematocrit (blood only) 35.6 % (42-52); Hemoglobin 12.5 g/dL (14.0-18.0); Mean Corpuscular Hemoglobin 31.3 pg (25-34); Mean Corpuscular Hgb Conc 35.1 g/dL (32-36); Mean Platelet Volume 10.4 fL (7.4-10.4); Platelet Count 262 K/uL (130-400); RDW Coefficient of Variation 13.5 % (11.5-14.5)
[2019-09-12] MEDS: ALBUTEROL 0.083% NEBU SOLN 3 ML VIAL INH PRN ×3 (07:52→23:32)
[2019-09-12 08:00] LABS: BUN Creatinine Ratio 7.4 (10-20); Calcium 8.6 mg/dl (8.5-10.1); Creatinine Clr Calc Pharmacy 80.6 ml/min; Est GFR (African American) 102.2; Est GFR (Non-African American) 88.2; Potassium 3.5 mmol/L (3.5-5.1)
[2019-09-12] MEDS: TIOTROPIUM BROMIDE 5 PUFF/90 MCG INH INH SCH (08:15)
--- NOTE | 2019-09-12 09:36 | Hospitalist Progress Note ---
Date of Service September 12, 2019 Assessment & Plan (1) Headache: Tylenol, supportive care as needed. May be related to Mountain Dew withdrawal? (2) Sepsis: Resuscitated. Possible sources include but not limited to pneumonia vs odontogenic infection. Covered with zosyn for now. Nasal swab was negative for MRSA and no abscess or purulent drainage was present, so Vancomycin was stopped yesterday. Flu is negative. Blood cultures initially negative. He is clinically improved today. Cont IVF for a little while longer today. Transfer to med/surg (3) Pneumonia: Plan as above. Incentive spirometry, encouraged to ambulate as tolerated. (4) History of tooth extraction: post-op recovery has been uneventful outside of recent symptoms. He is tolerating food and denies pain. (5) COPD (chronic obstructive pulmonary disease): chronic, no recent changes or concerns for exacerbation. Cont daily spiriva and prn albuterol nebulizer per home regimen. Pt also uses oxygen PRN ambulation at home, but not continuously (6) Colon cancer: h/o colon cancer with mets s/p partial colectomy and two wedge resections of the lungs for metastatic disease. Currently in remission. (7) DVT prophylaxis: Lovenox Full Code as discussed with patient on admission Dispo-PCU Payal Kim DO [facility] Hospitalist Subjective Pt has a frontal headache this morning that has persisted since last night. He is a mountain dew drinker, and has been without this He defervesced yesterday after a re-emergence of fever again in the evening. He has received several episodes of tylenol thus far. Tolerating PO Afebrile this morning and clinically feels better Some expectoration of rare mucous with streaks of blood but no analilia hemoptysis. Review of Systems Review of Systems: All systems reviewed & are unremarkable except as noted in HPI & below Physical Exam Physical Exam: CONSTITUTIONAL: WNWD, vitals as above, generally well- appearing EYES: normal conjunctivae, no scleral icterus ENT: MMM RESPIRATORY: clear to auscultation bilaterally. Good air movement. Normal respiratory effort CARDIOVASCULAR: regular rate and rhythm, S1 and 2 heard without murmurs, gallops or rubs, no JVD, no peripheral edema CHEST: inspection of chest was normal GASTROINTESTINAL: soft, nontender, nondistended MUSCULOSKELETAL: strength 5/5 throughout, head is normocephalic and atraumatic SKIN: warm and dry NEUROLOGIC: CN 2-12 grossly intact, normal cognition, normal speech, no gross focal deficits. PSYCHIATRIC: alert cooperative and oriented to person, place and time. Results & Data Vital Signs (Past 12 Hours) Vital Signs Temp Pulse Resp BP Pulse Ox 09/12/19 07:52 87 19 97 09/12/19 07:51 36.8 C 89 16 118/69 96 09/12/19 03:33 36.8 C 92 H 16 114/71 97 09/11/19 23:10 36.5 C 90 16 124/76 95 Laboratory Results Short CBC 09/12/19 Range/Units 06:56 WBC 17.70 H (4.8-10.8) K/uL Hgb 12.5 L (14.0-18.0) g/dL Hct 35.6 L (42-52) % Plt Count 262 (130-400) K/uL BMP 09/12/19 06:56 Sodium 141 D Potassium 3.5 Chloride 110 H Carbon Dioxide 26 BUN 7 Creatinine 0.92 Glucose 108 H Calcium 8.6 Medications Administered Current Inpatient Medications Acetaminophen (Tylenol) 650 mg PO Q4H PRN PRN Reason: Pain or Fever Stop: 10/11/19 09:03 Last Admin: 09/12/19 08:58 Dose: 650 mg Documented by: Albuterol (Ventolin Hfa) 2 puffs INH Q6H PRN PRN Reason: Shortness Of Breath Or Wheezing Stop: 10/11/19 09:03 Albuterol (Ventolin 0.083% 2.5mg/3ml) 2.5 mg INH Q6R PRN PRN Reason: bronchospasm Stop: 10/11/19 09:03 Last Admin: 09/12/19 07:52 Dose: 2.5 mg Documented by: Enoxaparin Sodium (Lovenox) 40 mg SQ HS FAHAD Stop: 10/11/19 20:59 Last Admin: 09/11/19 20:04 Dose: 40 mg Documented by: Piperacillin Sod/Tazobactam (Sod 3.375 gm/ Dextrose) 115 mls @ 28.75 mls/hr IV Q8H FAHAD; Protocol Stop: 09/18/19 09:59 Last Infusion: 09/12/19 04:59 Dose: Infused Documented by: Lactated Ringer's (Lr) 1,000 mls @ 125 mls/hr IV .Q8H FAHAD Stop: 09/12/19 09:59 Last Admin: 09/12/19 01:17 Dose: 125 mls/hr Documented by: Ioversol (Optiray 320 100ml) 92 ml IV ONCE PRN PRN Reason: Interaction Checking Stop: 09/15/19 05:57 Last Admin: 09/11/19 05:58 Dose: 92 ml Documented by: Miscellaneous Information (Consult) 1 ea N/A UD PRN PRN Reason: Consult Stop: 10/11/19 04:09 Last Admin: 09/11/19 04:41 Dose: 1 ea Documented by: Ondansetron HCl (Zofran) 4 mg IV Q6H PRN PRN Reason: Nausea Stop: 10/11/19 09:03 Polyethylene Glycol (Miralax Powder Packet) 17 gm PO DAILY PRN PRN Reason: Constipation Stop: 10/11/19 09:03 Tiotropium [place] (Spiriva) 1 puffs INH DAILY FAHAD Stop: 10/12/19 08:59 Last Admin: 09/12/19 08:15 Dose: 1 puffs Documented by: (1) Sepsis Sepsis acute organ dysfunction status: without acute organ dysfunction Sepsis type: sepsis due to unspecified organism Qualified Code(s): A41.9 - Sepsis, unspecified organism (2) COPD (chronic obstructive pulmonary disease) COPD type: unspecified COPD Qualified Code(s): J44.9 - Chronic obstructive pulmonary disease, unspecified (3) Pneumonia Laterality: left Lung location: upper lobe of lung Pneumonia type: due to unspecified organism Qualified Code(s): J18.9 - Pneumonia, unspecified organism
[2019-09-12] MEDS ORDERED: LACTATED RINGER'S 1,000 ML IV SCH (10:45)
[2019-09-12] MEDS: ENOXAPARIN INJ 40 MG/0.4 ML SYR SQ SCH (21:17)
[2019-09-13] MEDS: PIPERACILLIN/TAZOBACTAM 3.375 GM in DEXTROSE 5% 100 ML IV SCH ×2 (02:41→10:05)
[2019-09-13 07:24] LABS: Hematocrit (blood only) 35.9 % (42-52); Hemoglobin 12.9 g/dL (14.0-18.0); Mean Corpuscular Hemoglobin 31.9 pg (25-34); Mean Corpuscular Hgb Conc 35.9 g/dL (32-36); Mean Corpuscular Volume 88.6 fL (80-100); Mean Platelet Volume 10.4 fL (7.4-10.4); Platelet Count 277 K/uL (130-400); RDW Coefficient of Variation 13.4 % (11.5-14.5); RDW Standard Deviation 43.8 fL (36.4-46.3); Red Blood Count 4.05 M/uL (4.7-6.1); White Blood Count 11.85 K/uL (4.8-10.8)
[2019-09-13 07:55] LABS: BUN Creatinine Ratio 5.8 (10-20); Creatinine Clr Calc Pharmacy 75.6 ml/min; Est GFR (African American) 94.7; Est GFR (Non-African American) 81.7; Potassium 3.4 mmol/L (3.5-5.1)
[2019-09-13] MEDS: TIOTROPIUM BROMIDE 5 PUFF/90 MCG INH INH SCH (07:56)
[2019-09-13] MEDS: ALBUTEROL 0.083% NEBU SOLN 3 ML VIAL INH PRN (08:18)
--- NOTE | 2019-09-13 13:45 | Discharge Summary ---
Date of Service September 13, 2019 Admission HPI Per Admitting Provider 64 yo M who is frequently laboring outdoors presents with sepsis. 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 He developed acute tooth pain on mon, and went for a dental extraction under local anesthesia on Monday. No stitches were placed. No periprocedure antibiotics were reportedly given per patient. That evening he went home and reported having a fever. The following day his fever increased and was 103F. He reports a chronic cough from smoking without any changes in quality or sputum. He denies any chest pain but does have some L scapular pain present when he takes a deep breath. He denies any sinus pressure or sore throat and has no tooth pain locally. There is no sinus pressure to palpation or LAD present in the head or neck on exam and no pain to palpation of the neck. TM are pearly, and no fluid is present in middle ear today despite a report of bilateral ear fullness. He reports chronic tinnitus related to occupational hearing loss. He has been using debrox solution over the past couple of weeks. He denies any vomiting and has been tolerating food without issue. He reports some achy joints when the fevers come on and fevers are associated with chills. He denies any changes in his stool. Today in the ER he was febrile and tachycardic and was administered 3L of normal saline as well as vancomycin and zosyn. Lactate was normal. Blood cultures are drawn and pending. Imaging studies revealed evidence of patchy opacities in the [place] consistent with pneumonia, and face CT was negative for an odotogenic infection or abscess. Cervical chain lymph nodes were present that were thought reactive. Admission Exam Per Admitting Provider CONSTITUTIONAL: WNWD, vitals as above, generally well-appearing EYES: EOMI bilaterally, PERRL, normal conjunctivae, no scleral icterus ENT: external ear and nose normal, oropharynx clear, no TM abnormality, no maxillary or ethmoid sinus tenderness. Evidence of R mandibular extraction without pain to palpation, gum changes or drainage. No stitches present. NECK: trachea midline, no lymphadenopathy RESPIRATORY: rales along entire left lung field. No wheezing. Good air movement. Normal respiratory effort CARDIOVASCULAR: regular rate and rhythm, S1 and 2 heard without murmurs, gallops or rubs, no JVD, no peripheral edema CHEST: inspection of chest was normal GASTROINTESTINAL: soft, nontender, nondistended MUSCULOSKELETAL: strength 5/5 throughout, head is normocephalic and atraumatic SKIN: warm and dry NEUROLOGIC: CN 2-12 grossly intact, normal cognition, normal speech, no gross focal deficits. PSYCHIATRIC: alert cooperative and oriented to person, place and time. Principal Diagnosis Sepsis-resolved Pneumonia Discharge Exam CONSTITUTIONAL: WNWD, vitals as above, generally well-appearing EYES: normal conjunctivae, no scleral icterus ENT: MMM RESPIRATORY: clear to auscultation bilaterally. Good air movement. Normal respiratory effort CARDIOVASCULAR: regular rate and rhythm, S1 and 2 heard without murmurs, gallops or rubs, no JVD, no peripheral edema CHEST: inspection of chest was normal GASTROINTESTINAL: soft, nontender, nondistended MUSCULOSKELETAL: strength 5/5 throughout, head is normocephalic and atraumatic SKIN: warm and dry NEUROLOGIC: CN 2-12 grossly intact, normal cognition, normal speech, no gross focal deficits. PSYCHIATRIC: alert cooperative and oriented to person, place and time. Discharge Data Allergies Allergy/AdvReac Type Severity Reaction Status Date / Time No Known Allergies Allergy Verified 09/11/19 03:25 Consultations 09/11/19 07:32 ED Decision to Admit Stat 09/11/19 09:04 Consult Case Management - Discharge Planning Routine Ordered Studies 09/11/19 05:30 CT chest w con Stat CT facial bones w con Stat Hospital Course (1) Sepsis: (2) Pneumonia: (3) History of tooth extraction: (4) Colon cancer: 64-year-old man admitted to the hospitalist service with sepsis secondary to pneumonia. He was initially started on IV vancomycin and Zosyn. A MRSA swab resulted negative for MRSA and vancomycin was discontinued. The CT revealed no evidence of odontogenic infection including no abscess. Face and neck exam was negative for signs of infection and ultimately source of sepsis was considered to be pneumonia. He has a history of colon cancer with metastasis to the lungs and multiple rads resections. Some scarring was seen in the right upper lobe with some thickening of this area for which a CT scan was recommended and close follow-up to ensure stability. Otherwise opacities consistent with pneumonia were seen in the left upper lobe. He continued to do well and blood cultures were negative. White blood cell trended down to 11 K on time of discharge. He did not have any evidence of kidney injury. At time of discharge he was hemodynamically stable and afebrile for more than 24 hours. He was oxygenating well on room air and was sent home in stable condition with close primary care follow-up recommended. Chest imaging is recommended in 4 to 6 weeks to ensure complete resolution of the pneumonia. Total Time Total Time Spent Total Time Spent (In Minutes): 60 Total Time Includes: Examination of the Patient, Discharge Planning, Medication Reconciliation, Communication With Other Providers and Other (arrange followup) Discharge Plan Discharge Items Patient Disposition: Home - Self-Care Reason For Visit: SEPSIS, PNEUMONIA Discharge Diagnosis: Sepsis-resolved Pneumonia Condition on Discharge: Good Activity: Resume your previous activity Non-emergency contact: Primary Care Provider Call non-emergency contact if: you have any medication questions, your symptoms worsen, your pain is not controlled, your pain is worsening, your pain is unusual for you, your pain is concerning for you and you have a fever Follow-up/Referrals: Prosper Huber MD [Primary Care Provider] - 09/23/19 11:05 am Diet: Regular Addtl Attending Provider Instructions: Please complete the antibiotic course in full. It is recommended that you have a follow-up chest xray in 4 weeks time to ensure complete resolution of pneumonia. This may be ordered by your primary care physician. Additionally, there was some linear consolidation adjacent to the suture line in the right upper lung lobe (pneumonia was on the left) which is suggestive of probable pleural parenchymal scarring. However, radiology recommended close follow-up imaging for this to ensure stability. This should be reviewed with your PCP at follow-up, also. You are scheduled for the following appointment: 09/23/2019 11:20 AM Prosper Huber MD Family Practice [facility] It was a pleasure taking care of you! Please call if you have any questions or problems. You can reach a [facility] hospitalist on duty at [facility] 24 hours a day by calling [phone]. Take care of yourself. Payal Kim, DO [facility] Hospitalist Pending Studies at Discharge: Yes Studies:: final blood cultures pending at discharge with preliminary result negative. Stand-Alone Forms: My [facility] ScaleBase, Smoking Cessation Medications and DC Order Prescriptions: New levofloxacin [Levaquin] 750 mg tablet 750 mg PO DAILY 5 Days Qty: 5 RF: 0 Continued albuterol sulfate [Ventolin HFA] 90 mcg/actuation Hfa Aerosol Inhaler 2 puff INHALATION Q6H PRN (Reason: Shortness Of Breath Or Wheezing) RF: 0 albuterol sulfate 2.5 mg /3 mL (0.083 %) solution for nebulization 2.5 mg INH Q6H PRN (Reason: bronchospasm) Qty: 90 RF: 0 Spiriva with HandiHaler 18 mcg Capsule, W/Inhalation Device 1 cap INHALATION DAILY RF: 0 Discharge Orders: Discharge Order (Routine); Ordered 09/13/19 Ordered By: Payal Kim Admission Data Admit Date/Time: 09/11/19 08:05 Attending Provider: Payal Kim Admit Provider: Payal Kim Primary Care Provider: Prosper Huber Other Providers: Zeferino Jhaveri
== END 2019-09-13 15:08 | disposition home or self-care (01) | DRG 871 ==
LOC: ED 03:14 → 2S 08:05 → 3W 09-12 12:41